=== PATIENT | male | born 1955 | race Caucasian/White ===

== ENCOUNTER 2016-06-03 05:32 | Day surgery (SDC) | payer OTHER ==
--- NOTE | 2016-05-18 08:42 | PAT Medication Instructions ---
Service Date May 18, 2016. Current Home Medication List Acetaminophen (Tylenol Arthritis Ext Rel), 650 MG PO QAM Hydrochlorothiazide (Hydrochlorothiazide), 1 TAB PO QAM Multivitamin (Multivitamin), 1 TAB PO QAM Medication Instructions For Your Scheduled Surgery - Hold the following medications the morning of surgery: Hydrochlorothiazide (Hydrochlorothiazide), 1 TAB PO QAM Multivitamin (Multivitamin), 1 TAB PO QAM - Take the following medications the morning of surgery with a sip of water: Acetaminophen (Tylenol Arthritis Ext Rel), 650 MG PO QAM (if needed) If you have any questions please call us at [phone] or [phone] ( [place]) or [phone]
[2016-05-18 08:56] LABS: BASO % 0.1 %; BASO ABS # 0.01 K/uL (0-0.2); COMPLETE YES; EOS % 0.1 %; HEMATOCRIT 45.9 % (42-52); IG% 0.2 %; LYMPH % 7.8 %; LYMPH ABS # 0.63 K/uL (1.2-3.4); MEAN CELL VOLUME 94.3 fL (80-100); MEAN CORPUSCULAR HEMOGLOBIN 32.6 pg (25-34); MEAN CORPUSCULAR HGB CONC 34.6 g/dl (32-36); MEAN PLATELET VOLUME 11.2 fL (7.4-10.4); MONO % 7.8 %; PLATELET COUNT 176 K/uL (130-400); RED BLOOD COUNT 4.87 M/uL (4.7-6.1); WHITE BLOOD COUNT 8.09 K/uL (4.8-10.8)
[2016-05-18 09:18] LABS: INR 1.1 (0.9-1.1); PROTHROMBIN TIME (PATIENT) 11.4 SECONDS (9.0-12.0)
[2016-05-18 09:23] LABS: BUN/CREATININE RATIO 18.1 (10-20); CALCIUM 8.4 mg/dl (8.5-10.1); CREATININE 0.9 mg/dl (0.60-1.40)
[~2016-06-03] VITALS: Ht 177.8 cm; Wt 94.0 kg
[~2016-06-03 05:32] MED LIST: ACET1TAB84 PO; HYDR25TA5 PO; MULT-506 PO
[2016-06-03] MEDS ORDERED: CEFAZOLIN 2000 MG/60 ML D5W IV SCH (06:00)
[2016-06-03] MEDS ORDERED: HEPARIN SOD 5000 UNIT/0.5 ML CARP SQ SCH (06:00)
[2016-06-03] MEDS ORDERED: LACTATED RINGER'S 1000ML 1,000 ML IV SCH (06:00)
[2016-06-03 06:02] VITALS: BP 159/89; PULSE 87; TEMP 36.5; O2SAT 97; Ht 177.8 cm; Wt 94.0 kg
[2016-06-03] MEDS ORDERED: NEOSTIGMINE METHYLSULFATE 5 MG/5 ML SYR ONE (06:57)
[2016-06-03] MEDS ORDERED: PROPOFOL IV EMULSION 10 MG/ML 20 ML VIAL IV ONE (06:57)
[2016-06-03] MEDS ORDERED: ONDANSETRON INJ 2 MG/ML 2 ML VIAL ONE (06:57)
[2016-06-03] MEDS ORDERED: DEXAMETHASONE SOD INJ 4 MG/ML VIAL ONE (06:57)
[2016-06-03] MEDS ORDERED: GLYCOPYRROLATE INJ 0.2 MG/ML VIAL ONE ×2 (06:57→08:27)
[2016-06-03] MEDS ORDERED: LIDOCAINE HCL 2% 2 ML VIAL (20MG/ML) ONE (06:57)
[2016-06-03] MEDS ORDERED: MIDAZOLAM HCL 1 MG/ML 2ML VIAL ONE (06:58)
[2016-06-03] MEDS ORDERED: FENTANYL CITRATE INJ 50 MCG/1 ML 2 ML VIAL ONE (06:58)
--- NOTE | 2016-06-03 06:59 | History & Physical Bridge Note ---
H&P Re-Evaluation Bridge Note: I have examined the patient, reviewed the History & Physical and in the interval since the performance of the History & Physical I have noted the following changes of clinical significance: No changes noted
[2016-06-03] MEDS ORDERED: EpHEDrine SULFATE INJ 50 MG/ML AMP IV PRN (07:00)
[2016-06-03] MEDS ORDERED: ONDANSETRON INJ 2 MG/ML 2 ML VIAL IV PRN ×2 (07:00→09:45)
[2016-06-03] MEDS ORDERED: ATROPINE SULFATE 0.1 MG/ML 5ML SYR IV PRN (07:00)
[2016-06-03] MEDS ORDERED: HYDR-5688 PO (07:41)
--- NOTE | 2016-06-03 07:42 | Discharge Instructions ---
Discharge Instructions Admission Reason for Admission: Recurrent Left Inguinal Hernia Discharge Discharge Diagnosis / Problem: recurrent left inguinal hernia Discharge Goals Goal(s): Decrease discomfort, Improve function Activity Recommendations Activity Limitations: as noted below Lifting Limitations: no more than 10 pounds Exercise/Sports Limitations: until after follow-up appointment May Resume Sexual Activity: after follow-up appointment Shower/Bathe: tomorrow . Instructions / Follow-Up Instructions / Follow-Up f/u Dr. Lester 1-2 weeks. Current Hospital Diet Patient's current hospital diet: Discharge Diet Recommended Diet: Regular Diet Pending Studies Studies pending at discharge: no Medical Emergencies . Who to Call and When: Medical Emergencies: If at any time you feel your situation is an emergency, please call 911 immediately. . Non-Emergent Contact Non-Emergency issues call your: Primary Care Provider, Surgeon Call Non-Emergent contact if: temperature is above 101, wound has increased drainage, wound has increased redness, wound has increased pain . "Provider Documentation" section prepared by Ronaldo Lester. VTE Core Measure Inpt VTE Proph given/why not?: Unfractionated heparin SQ, SCD's
[2016-06-03] MEDS ORDERED: VASOPRESSIN 20 UNIT/ML VIAL ONE (08:27)
[2016-06-03] MEDS ORDERED: BUPIVACAINE/EPINEPHRINE 0.5% MPF 1:200,000 30 ML VIAL INJ ONE (09:04)
--- NOTE | 2016-06-03 09:30 | [facility] Operative Report ---
Operative Report Operative Date Jun 03, 2016. Pre-Operative Diagnosis Recurrent Left Inguinal Hernia Post-Operative Diagnosis recurrent LIH Procedure(s) Performed laparoscopic LIH repair with mesh Surgeon Dr Lester Findings large recurrent hernia with sigmoid colon incarceration Specimens None Anesthesia GET Complication(s) None Disposition Recovery Room / PACU I attest to the content of the Intraoperative Record and any orders documented therein. Any exceptions are noted below.
[2016-06-03] MEDS ORDERED: SODIUM CHLORIDE 0.9% 1000ML 1,000 ML IV SCH (09:31)
--- NOTE | 2016-06-03 09:34 | History and Physical ---
History & Physical Date Jun 03, 2016. Chief Complaint recurrent LIH History of Present Illness The patient is a 61 year old male with complaints of left groin bulge/discomfort Past Medical/Surgical History Medical Problems: (1) Diverticulosis (2) HTN (hypertension) (3) Hyperlipidemia Additional History Hepatic Disease: No Endocrine Disorder: No Kidney Disease: No Hypertension: No Heart Disease: No Bleeding Tendencies: No Infectious Diseases: No Allergies Coded Allergies: No Known Allergies (Unverified , 06/03/16) Home Medications Scheduled Acetaminophen (Tylenol Arthritis Ext Rel), 650 MG PO QAM Hydrochlorothiazide (Hydrochlorothiazide), 1 TAB PO QAM Multivitamin (Multivitamin), 1 TAB PO QAM Scheduled PRN Hydrocodone/Acetaminophen 5MG/325MG ([place] 5MG/325MG), 1-2 TABLET PO Q4 PRN for Pain Physical Examination Skin: warm/dry Eyes: normal inspection, EOMI ENT: normal ENT inspection Head: normocephalic Neck: supple, no adenopathy Respiratory/Chest: lungs clear Cardiovascular: regular rate, rhythm, no edema Abdomen / GI: + pertinent finding (large recurrent LIH) Extremities: normal inspection Genitourinary - Male: normal male genitalia Diagnosis recurrent LIH Plan of Treatment laparoscopic/possible open LIH repair with mesh
[2016-06-03] MEDS ORDERED: KETOROLAC TROMETHAMINE 30 MG/ML VIAL IV. PRN (09:45)
[2016-06-03] MEDS ORDERED: HYDROCODONE/ACETAMOPHEN 5/325MG TAB PO PRN ×2 (09:45)
[2016-06-03] MEDS ORDERED: MoRPHine SULFATE 4 MG/ML 1 ML CARP\\VIAL IV PRN (09:45)
[2016-06-03] MEDS ORDERED: IBUPROFEN 600 MG TAB PO PRN (09:45)
[2016-06-03] MEDS: FENTANYL CITRATE INJ 50 MCG/1 ML 2 ML VIAL IV PRN ×2 (09:49→09:54)
--- NOTE | 2016-06-03 10:12 | OPERATIVE REPORT ---
DATE OF OPERATION: 06/03/2016 PREOPERATIVE DIAGNOSIS: Recurrent left inguinal hernia. POSTOPERATIVE DIAGNOSIS: Large recurrent left inguinal hernia with sigmoid colon incarceration. PROCEDURE: Laparoscopic repair of recurrent left inguinal hernia with mesh. SURGEON: Dr. Lester. ESTIMATED BLOOD LOSS: 20 mL. COMPLICATIONS: No immediate. ANESTHESIA: General. The patient tolerated the procedure well. OPERATIVE NOTE: After informed consent was obtained, the patient was taken to the operating suite and placed in supine position. After successful intubation, a Pro catheter was placed and the lower abdomen was shaved and sterilely prepped and draped in the usual fashion. The right arm was tucked. We began by making an infraumbilical incision with an 11 blade scalpel and carried down through the soft tissue using electrocautery. Anterior rectus fascia was opened using electrocautery and two #0 Vicryl stay sutures were placed. The peritoneum was elevated with hemostats and incised under direct vision using Metzenbaum scissor. A finger sweep was performed and a 12 mm Staci trocar was placed. The abdomen was insufflated to 20 mmHg with CO2. We inserted the camera. We were able to place 2 right mid abdominal 5 mm trocars as well. Initially at the beginning of the procedure after pneumoperitoneum, the patient had a brief episode of bradycardia. We desufflated the abdomen and waited for this to correct with anesthesia's help. Once his heart rate was back up to normal, we reinsufflated the abdomen, reinserted the camera. There was a very large left inguinal hernia defect with sigmoid colon incarcerated within it. The patient had a large amount of weight loss recently, and the soft tissues were very lax. We did have a lot of CO2 leakage around the trocar sites and into the soft tissue throughout the case making visualization somewhat difficult. Nonetheless, we were able to manually reduce the sigmoid colon back into the abdominal cavity. There was a very large, floppy, chronic hernia sac. We used the Harmonic scalpel to divide this and tease this out of the inguinal canal and back into the abdominal cavity. Once we had completely skeletonize the cord and cord structures, and we everything reduced, we then used a piece of Surgimesh with a silicone barrier to prevent adhesions. I did cut a keyhole in it to wrap around the cord and cord structures. It was a 12 cm circular piece. We inserted this into the abdominal cavity, and I used the keyhole to go around the cord and cord structures. We placed it into place and then used a ProTacker to tack it making sure we could palpate the tacker above the iliopubic tract laterally. I also put one into Patrick's ligament medially. The mesh laid nice and free and without tension. There was adequate hemostasis at the end of the case. No other abnormalities were identified. We did watch the mesh fold into place nicely as we desufflated the abdomen. We then removed all the trocars. The fascia of the camera port was closed using 0 Vicryl in a [id number] fashion. The wounds were all irrigated and closed using 4-0 Monocryl. Marcaine was injected around for postoperative analgesia and skin glue an Op-Sites used for dressings. There was a fair amount of C2 in the scrotum, as well as in the soft tissue at the end of the case. Other than that, no other issues were identified. The patient was awakened, extubated, and transferred to recovery in stable condition. I attest to the content of the Intraoperative Record and any orders documented therein. Any exceptio ns are noted below.
[2016-06-03 10:20] VITALS: BP 127/72; PULSE 68; TEMP 36.4; O2SAT 93
--- NOTE | 2016-06-03 10:38 | Anesthesiology Progress Note ---
Anesthesia Post Op Note Date & Time Jun 03, 2016 at 10:38 Vital Signs Pain Intensity: 3 Vital Signs Past 12 Hours Date Time Temp Pulse Resp B/P Pulse Ox O2 Delivery O2 Flow Rate FiO2 06/03/16 10:10 36.6 79 16 153/92 100 Room Air 06/03/16 10:00 36.6 74 16 135/88 98 Room Air 06/03/16 09:50 69 16 132/86 99 Room Air 06/03/16 09:40 59 16 136/92 100 Mask 10 06/03/16 09:30 52 16 123/73 100 Mask 10 06/03/16 09:21 36.1 68 16 134/85 100 Mask 10 06/03/16 06:02 36.5 87 18 159/89 97 Room Air Notes Mental Status: alert / awake / arousable, participated in evaluation Pt Amnestic to Procedure: Yes Nausea / Vomiting: adequately controlled Pain: adequately controlled Airway Patency, RR, SpO2: stable & adequate BP & HR: stable & adequate Hydration State: stable & adequate Anesthetic Complications: no major complications apparent
[2016-06-03 10:50] VITALS: BP 142/89; PULSE 72; TEMP 36.2; O2SAT 98
[2016-06-03 11:20] VITALS: BP 126/81; PULSE 82; TEMP 36.5; O2SAT 96
== END 2016-06-03 11:25 | disposition home or self-care (01) ==
LOC: C.ACU 05:32
PROVIDERS: ATTEND Surgery
DX: K40.91 Unilateral inguinal hernia, without obstruction or gangrene, recurrent (principal); K56.69 Other intestinal obstruction; K57.90 Diverticulosis of intestine, part unspecified, without perforation or abscess without bleeding; E78.5 Hyperlipidemia, unspecified; I10 Essential (primary) hypertension

== ENCOUNTER → 2017-03-11 | Outpatient (CLI) | payer OTHER ==
[2017-03-11 10:11] LABS: BLOOD UREA NITROGEN 11 mg/dl (7-18); BUN/CREATININE RATIO 13.4 (10-20); CALCIUM 8.7 mg/dl (8.5-10.1); CARBON DIOXIDE 30 mmol/L (21-32); CHLORIDE 105 mmol/L (98-107); CHOLESTEROL 180 mg/dl (0-200); CHOLESTEROL/HDL RATIO 3.3; CREATININE 0.82 mg/dl (0.60-1.40); GLUCOSE 94 mg/dl (70-99); HDL CHOLESTEROL 54 mg/dl; LDL CHOLESTEROL CALCULATED 98 mg/dl; POTASSIUM 3.9 mmol/L (3.5-5.1); SODIUM 140 mmol/L (136-145); TRIGLYCERIDES 142 mg/dl (0-150); VERY LOW DENSITY LIPOPROT CALC 28 mg/dl
== END | disposition home or self-care (01) ==
LOC: C.LAB 06:59
PROVIDERS: ATTEND Internal Medicine
DX: I10 Essential (primary) hypertension (principal)

== ENCOUNTER 2024-10-02 08:37 | Inpatient (IN) ==
[2024-10-02 09:19] LABS: HCO3 VBG 29 mmol/L; Oxygen Saturation VBG < 60.0 %; PCO2 VBG 49 mmHg (38-50); PO2 VBG 30 mmHg; pH VBG 7.38 (7.36-7.41)
--- NOTE | 2024-10-02 09:23 | Emergency Department Note ---
Impression & Plan Symptomatic bradycardia, Lightheadedness, Acute dyspnea, Elevated brain natriuretic peptide (BNP) level ED Provider Note HISTORY OF PRESENT ILLNESS: Patient is a 69-year-old male presenting with shortness of breath and dizziness. Patient reports that 4 days ago he took his morning medications and did not eat right away and had gone and done some chores. He reports that he got very lightheaded and passed out. He states that he woke up and went and had breakfast and thought he would be getting better, but has had persistent dizziness and lightheadedness ever since. He states that while walking he feels very lightheaded like he is going to pass out. He states that he also gets very short of breath with ambulation. He denies any chest pain with this shortness of breath or lightheadedness. He reports he is able to take about 10-15 steps before he has to stop to try to catch his breath. Denies any DVT or PE history. Denies any history of cardiac stents. He is on Eliquis for history of permanent A-fib. He states that he also has noticed that his heart rate has been getting down into the 40s. He states that he was using an at-home pulse ox when he got lightheaded and noticed that his heart rate was in the 40s. He denies any recent fevers or chills. He does report he has been having bilateral muscular neck stiffness. He states that this started 3 to 4 months ago, shortly after initiating his statin. Denies any headache or changes in vision. Denies any abdominal pain, nausea or vomiting. ROS: as above PHYSICAL EXAM: Constitutional: Patient appears in no acute distress. HENT: Head: Normocephalic and atraumatic. Eyes: EOMI, PERRL Mouth/Throat: Mucous membranes moist. Neck: Trachea midline. Neck supple. Full range of motion of the neck without meningismus. Cardiovascular: Bradycardic with irregular rhythm. No murmurs, rubs or gallops. Intact distal pulses. Pulmonary/Chest: No respiratory distress. Breath sounds clear and equal bilaterally. No wheezes or rales. Abdominal: Abdomen soft, no tenderness, rebound or guarding. Musculoskeletal: No edema, tenderness or deformity noted. Skin: Warm and dry. No rash, erythema, pallor or cyanosis Psychiatric: Appropriate mood and affect for situation. Neurological: Alert and keenly responsive. CN II-XII grossly intact, moving all extremities equally and fully. MDM: - Vitals signs showed hypertension and bradycardia. - History obtained via patient. History as above. - Chronic conditions affecting care: HTN; BRETT; permanent Afib; RBBB - Differential diagnoses include, but are not limited to: Dysrhythmia; electrolyte abnormality; CHF; pneumonia; ACS; viral syndrome - Order placed for continuous cardiac monitoring. At this time, monitor showed rate of 41 bpm with irregular rhythm, per my interpretation. - External medical records reviewed. Cardiology office visit note dated 03/29/2024 was reviewed. Patient follows in their clinic for his permanent atrial fibrillation. - EKG image interpreted by myself showed atrial fibrillation. Rate 52 bpm. QT 480. No acute ischemic changes. - While on telemetry in the emergency department, the patient is noted to have significant bradycardic episodes, with his heart rate going down to 30. A repeat EKG obtained at 949 interpreted by myself showed atrial fibrillation. Rate 50 bpm. QT 492. Patient is very symptomatic to his episodes of bradycardia and states that he feels woozy and lightheaded despite laying in bed. - Laboratory workup interpreted by myself showed leukocytosis (WBC 12.45) with neutrophil predominance; normal PT/INR; elevated BNP (261); normal troponin; stable electrolytes - Viral respiratory panel negative - VBG normal - CXR image reviewed by myself showed pulmonary vascular congestion, per my interpretation. Radiology notes mild CHF and atelectasis versus early pneumonia in the lung bases. - CT cervical spine wo contrast negative for acute pathology - CT PE negative for PE. Noted to have cardiomegaly and moderate-sized hiatal hernia. - Discussed patient's case with [facility] hash slinger on-call, Dr. Gatica, at 1125. He recommended holding the patient's AV mason drugs and reassess about potential need for pacemaker. - However, patient continues to have episodes of bradycardia down to the low 30s and he is symptomatic. Will admit for further evaluation, including echocardiogram and cardiology consultation. - Discussion was had with major case detective about patient's case and need for admission - Hospitalist consulted for admission - Patient admitted to [facility] hospitalist service for further evaluation and management. ASSESSMENT AND PLAN: Diagnosis: symptomatic bradycardia; lightheadedness; acute dyspnea; elevated BNP Plan: admit Past Med/Surg History Problem List (Updated 10/02/24 @ 13:24 by Rhina Segura MD) Elevated brain natriuretic peptide (BNP) level (Acute) Acute dyspnea (Acute) Lightheadedness (Acute) Symptomatic bradycardia (Acute) BPH (benign prostatic hyperplasia) At increased risk for cardiovascular disease Gonsales's esophagus with low grade dysplasia EGD 07/21/2023 Erectile dysfunction Normal left ventricular systolic function and wall motion Abnormal electrocardiogram Right bundle branch block BRETT (obstructive sleep apnea) Vitamin D insufficiency Class 2 obesity Metabolic syndrome Hyperglycemia Low back pain Chronic sinusitis (Acute) Hyperlipidemia (Chronic) HTN (hypertension) (Chronic) Chronic anticoagulation eliquis daily Afib on eliquis--follows with Dr. Perez Osteoarthritis Barretts esophagus Medical History Right ear impacted cerumen Anemia Morbid obesity due to excess calories Dietary counseling and surveillance HTN (hypertension) History of sleep apnea Iron deficiency anemia Surgical History History of esophagogastroduodenoscopy (EGD) History of tonsillectomy History of hernia repair History of colonoscopy Family History Grandmother (Maternal) Diabetes Other No family history of adverse response to anesthesia Denies family history of Colon cancer Ovarian cancer Prostate cancer Myocardial infarction Breast cancer Lung cancer Colorectal cancer Stroke Social History Smoking Status: Never smoker Tobacco Type: Cigars Age Started Using Tobacco: 20; Second Hand Exposure: No; Do You Dip or Chew Tobacco: No; Hx Alcohol Use: Yes Alcohol type: beer and hard liquor Hx Substance Use: No Preferred Language: Uzbek Communication Ability: Effective Visual Impairment: Limited Hearing Ability: Normal Mold Holder Required: No Beliefs That Will Affect Care: None marital status: / Current Living Situation: Alone current occupational status: retired 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 How many Children do You have: 2 Feels Safe at Home: Yes Childhood Exposure to Second-Hand Smoke: No caffeine: Yes Dental Care, Regularly: Yes Physical Activity Frequency: 1-2 Times per Week Seatbelt Use: always Sunscreen Use: Yes Assistive Devices: Glasses Allergies Allergies Allergy/AdvReac Type Severity Reaction Status Date / Time No Known Allergies Allergy Verified 03/29/24 08:20 Home Meds Home Medications Medication Instructions Recorded Confirmed turmeric (bulk) 95 % powder 1 % miscellaneous QAM 03/23/19 10/02/24 (Curcumin) acetaminophen 650 mg 650 mg PO QAM 10/11/19 10/02/24 tablet,extended release ascorbate calcium (vitamin C) 500 1 g PO QAM 05/12/21 10/02/24 mg tablet cholecalciferol (vitamin D3) 50 50 mcg PO QAM 07/08/23 10/02/24 mcg (2,000 unit) capsule ferrous sulfate 325 mg (65 mg 325 mg PO WK 09/21/23 10/02/24 iron) tablet multivitamin 1 tab PO DAILY 10/02/24 10/02/24 Previous Rx's Medication Instructions Recorded sildenafil 50 mg tablet (Viagra) 50 mg PO DAILY PRN sexual activity 12/01/23 #20 tabs pantoprazole 40 mg tablet,delayed 40 mg PO BID #180 tabs 01/25/24 release losartan 100 mg tablet 100 mg PO QAM #90 tabs 03/02/24 apixaban 5 mg tablet (Eliquis) 5 mg PO BID #60 tabs 08/06/24 hydrochlorothiazide 25 mg tablet 25 mg PO QAM #90 tabs 08/17/24 diltiazem HCl 180 mg 180 mg PO QAM #100 caps 08/21/24 capsule,extended release 24 hr rosuvastatin 5 mg tablet 5 mg PO DAILY #30 tabs 09/09/24 Results & Data (ED) Vital Signs Vital Signs - 24 hr 10/02/24 08:38 10/02/24 08:54 10/02/24 08:55 Temperature 36.6 C Temperature Source Temporal Artery Scan Pulse Rate 52 L Pulse Rate [Apical] 54 L Pulse Rate from SpO2 Sensor Pulse Rhythm [Apical] Pulse Strength [Apical] Respiratory Rate 18 13 Respiratory Effort / Characteristics Respiratory Depth Respiratory Pattern Blood Pressure 152/65 H Blood Pressure [Right Arm] 182/90 H Blood Pressure Mean 94 Blood Pressure Mean [Right Arm] 120 Blood Pressure Position [Right Arm] Pulse Oximetry 99 97 Oxygen Delivery Method Room Air Room Air Sepsis Recent Fever Within 48 Hours No Sepsis New/Unexplained Change in Mental Status N/A Sepsis Action Taken by Nursing No Action Required 10/02/24 09:00 10/02/24 09:02 10/02/24 09:06 Temperature Temperature Source Pulse Rate 52 L 52 L Pulse Rate [Apical] Pulse Rate from SpO2 Sensor Pulse Rhythm [Apical] Pulse Strength [Apical] Respiratory Rate 19 Respiratory Effort / Characteristics Respiratory Depth Respiratory Pattern Blood Pressure 147/71 H Blood Pressure [Right Arm] Blood Pressure Mean 96 Blood Pressure Mean [Right Arm] Blood Pressure Position [Right Arm] Pulse Oximetry Oxygen Delivery Method Sepsis Recent Fever Within 48 Hours Sepsis New/Unexplained Change in Mental Status Sepsis Action Taken by Nursing 10/02/24 09:19 10/02/24 09:30 10/02/24 09:30 Temperature Temperature Source Pulse Rate 51 L Pulse Rate [Apical] Pulse Rate from SpO2 Sensor Pulse Rhythm [Apical] Pulse Strength [Apical] Respiratory Rate 21 Respiratory Effort / Characteristics Respiratory Depth Respiratory Pattern Blood Pressure 144/80 H Blood Pressure [Right Arm] Blood Pressure Mean 117 Blood Pressure Mean [Right Arm] Blood Pressure Position [Right Arm] Pulse Oximetry Oxygen Delivery Method Room Air Sepsis Recent Fever Within 48 Hours Sepsis New/Unexplained Change in Mental Status Sepsis Action Taken by Nursing 10/02/24 09:57 10/02/24 10:00 10/02/24 10:09 Temperature Temperature Source Pulse Rate 49 L 48 L Pulse Rate [Apical] Pulse Rate from SpO2 Sensor 49 L 48 L Pulse Rhythm [Apical] Pulse Strength [Apical] Respiratory Rate 19 18 Respiratory Effort / Characteristics Respiratory Depth Respiratory Pattern Blood Pressure 147/78 H Blood Pressure [Right Arm] Blood Pressure Mean 95 Blood Pressure Mean [Right Arm] Blood Pressure Position [Right Arm] Pulse Oximetry 97 96 Oxygen Delivery Method Room Air Room Air Sepsis Recent Fever Within 48 Hours Sepsis New/Unexplained Change in Mental Status Sepsis Action Taken by Nursing 10/02/24 11:20 10/02/24 12:58 10/02/24 13:24 Temperature Temperature Source Pulse Rate 38 L Pulse Rate [Apical] 37 L 35 L Pulse Rate from SpO2 Sensor Pulse Rhythm [Apical] Regular Regular Pulse Strength [Apical] Normal Normal Respiratory Rate 20 22 Respiratory Effort / Characteristics Non-Labored Spontaneous Non-Labored Spontaneous Respiratory Depth Normal Normal Respiratory Pattern Regular Regular Blood Pressure Blood Pressure [Right Arm] 136/69 147/72 H Blood Pressure Mean Blood Pressure Mean [Right Arm] 91 97 Blood Pressure Position [Right Arm] Lying Lying Pulse Oximetry 98 96 Oxygen Delivery Method Room Air Room Air Sepsis Recent Fever Within 48 Hours Sepsis New/Unexplained Change in Mental Status Sepsis Action Taken by Nursing Laboratory Data 10/02/24 09:00 10/02/24 09:00 Lab Results 10/02/24 10/02/24 10/02/24 Range/Units 09:00 09:15 10:35 WBC 12.45 H (4.8-10.8) K/ul RBC 4.52 L (4.70-6.10) M/uL Hgb 13.4 L (14.0-18.0) g/dl Hct 41.5 L (42.0-52.0) % MCV 91.8 (80.0-100.0) fL MCH 29.6 (25.0-34.0) pg MCHC 32.3 (32.0-36.0) g/dL RDW Std Deviation 50.4 H (36.4-46.3) fL RDW Coeff of Sean 14.9 H (11.5-14.5) % Plt Count 266 (130-400) K/uL MPV 11.6 (9.4-12.4) fL Immature Gran % (Auto) 0.3 % Neut % (Auto) 73.4 % Lymph % (Auto) 15.3 % Cecil % (Auto) 10.3 % Eos % (Auto) 0.3 % Baso % (Auto) 0.4 % Neut # (Auto) 9.14 H (1.40-6.50) K/uL Lymph # (Auto) 1.90 (1.20-3.40) K/uL Cecil # (Auto) 1.28 H (0.11-0.59) K/uL Eos # (Auto) 0.04 (0.00-0.50) K/uL Baso # (Auto) 0.05 (0.00-0.20) K/uL Immature Gran # (Auto) 0.04 (0.01-0.20) K/uL PT 11.0 (9.0-12.0) Seconds INR 1.0 (0.9-1.1) VBG pH 7.38 (7.36-7.41) VBG pCO2 49 (38-50) mmHg VBG pO2 30 mmHg VBG HCO3 29 mmol/L VBG O2 Saturation < 60.0 % VBG Base Excess 3.0 mEq/L Sodium 139 (136-145) mmol/L Potassium 4.0 (3.5-5.1) mmol/L Chloride 103 (98-107) mmol/L Carbon Dioxide 30 (21-32) mmol/L Anion Gap 6 (3-11) BUN 19 (6-23) mg/dl Creatinine 1.08 (0.6-1.4) mg/dl Est Cr Clr Drug Dosing Not Reportable eGFR 73.82 BUN/Creatinine Ratio 17.6 (10-20) Glucose 134 H (70-99(Fasting)) mg/dl Calcium 9.4 (8.6-10.3) mg/dl Magnesium 2.2 (1.7-2.4) mg/dl Total Bilirubin 0.8 (0.2-1.0) mg/dl AST 17 (13-39) U/L ALT 19 (7-52) U/L Alkaline Phosphatase 77 (34-104) U/L Troponin I High Sens 6.8 (0-20) pg/ml B-Natriuretic Peptide 261 H (0-100) pg/ml Total Protein 7.6 (6.0-8.3) gm/dl Albumin 4.3 (3.4-5.0) gm/dl Globulin 3.3 (2.5-4.0) gm/dl Albumin/Globulin Ratio 1.3 (0.9-2) Urine Color Yellow Urine Appearance Clear (Clear) Urine pH 8.0 H (4.5-7.5) Ur Specific [place] 1.021 (1.000-1.030) Urine Protein 1+ H (Negative) Urine Glucose (UA) Negative (Negative) Urine Ketones Trace H (Negative) Urine Blood Negative (Negative) Urine Nitrite Negative (Negative) Urine Bilirubin Negative (Negative) Urine Urobilinogen Negative (Negative) Ur Leukocyte Esterase Negative (Negative) Urine WBC (Auto) 0-5 (0-5) /hpf Urine RBC (Auto) 0-2 (0-2) /hpf U Hyaline Cast (Auto) 0-2 (0-2) /lpf U Epithel Cells (Auto) 0-2 (0-2) /hpf Urine Bacteria (Auto) None Seen (None Seen) Urine Comment Adenovirus (PCR) Not Detected (NotDetected) B. pertussis DNA (PCR) Not Detected (NotDetected) B.parapertussis DNA PCR Not Detected (NotDetected) C. pneumoniae DNA (PCR) Not Detected (NotDetected) Coronavirus OC43 (PCR) Not Detected (NotDetected) Coronavirus HKU1 (PCR) Not Detected (NotDetected) Coronavirus 229E (PCR) Not Detected (NotDetected) SARS-CoV-2 (PCR) Not Detected (NotDetected) Coronavirus NL63 (PCR) Not Detected (NotDetected) Human Metapneumovir PCR Not Detected (NotDetected) Influenza Type A (PCR) Not Detected (NotDetected) Influenza Type B (PCR) Not Detected (NotDetected) M. pneumoniae (PCR) Not Detected (NotDetected) Parainfluenza 1 (PCR) Not Detected (NotDetected) Parainfluenza 2 (PCR) Not Detected (NotDetected) Parainfluenza 3 (PCR) Not Detected (NotDetected) Parainfluenza 4 (PCR) Not Detected (NotDetected) RSV (PCR) Not Detected (NotDetected) Entero/Rhino (PCR) Not Detected (NotDetected) Administered Medications Discontinued Medications Ioversol (Optiray 320 125ml) 119 ml IV ONCE ONE Stop: 10/02/24 10:56 Last Admin: 10/02/24 10:55 Dose: 119 ml Documented By: [facility] Imaging Data Radiologist's Impression: Chest X-Ray 10/02/24 08:57 XR chest 1V portable CLINICAL HISTORY: Dyspnea COMPARISON STUDY: 08/11/2015 FINDINGS: There is moderate cardiomegaly with mild pulmonary vascular congestion. There is density at the low central chest which could be due to the cardiomegaly or hiatal hernia. Inspiration is shallow. There is mild stranding opacity at the lung bases. No lobar consolidation, pleural effusion, or pneumothorax. IMPRESSION: 1. Mild CHF. 2. Atelectasis versus early pneumonia in the lung bases. ACT 112: Negative or not required by law. Electronically signed by: Simón Muro M.D. 10/02/2024 9:[address] 10/02/24 09:32 CT SCAN OF THE CERVICAL SPINE CLINICAL HISTORY: Neck pain. COMPARISON STUDY: None. TECHNIQUE: CT scan of the cervical spine is performed from the skull base to the upper thoracic spine. Images are reviewed in the axial, sagittal, and coronal planes. IV contrast was not administered for this examination. A dose lowering technique was utilized adhering to the principles of ALARA. FINDINGS: Alignment of the cervical spine is anatomic. Vertebral body heights are maintained. There are no cervical spine fractures. No osseous lesions are identified. There is moderate multilevel facet arthrosis and degenerative disc disease within the cervical spine. Disc space narrowing is most pronounced at the C5-C6 and C6-C7 levels. There is associated osteophytosis. The central canal and neural foramen are suboptimally assessed given CT technique. However, there is no evidence for severe central canal stenosis on this exam. Prevertebral soft tissues are unremarkable. Chest CT will be reported separately. IMPRESSION: 1. No acute cervical spine fracture or subluxation. 2. Moderate multilevel degenerative disc disease and facet arthrosis within the cervical spine. Suboptimal evaluation of the central canal and neural foramen given CT technique but no evidence for severe central canal stenosis on this study. ACT 112: Negative or not required by law. Electronically signed by: Carlos Enrique Siddiqui M.D. 10/02/2024 11:11 AM Chest CTA 10/02/24 09:32 CT angio chest PE protocol CT DOSE: 1515.74 mGy.cm HISTORY: 69 years-old Male with PE. Acute shortness of breath with chest and neck pain TECHNIQUE: Multiple CTA images of the chest were obtained after the intravenous administration of 119 ml Optiray. Coronal and sagittal MIPS were obtained from the axial data set and were submitted for review. All measurements were obtained according to NASCET criteria. A dose lowering technique was utilized adhering to the principles of ALARA. COMPARISON: Chest x-ray of same day FINDINGS: CTA: Moderate cardiomegaly. No pericardial effusion. There is minimal coronary artery calcifications. Fusiform dilation of the ascending thoracic aorta, 4.3 x 4.2 cm. No dissection. No pulmonary emboli are seen. CT CHEST: Unremarkable thyroid. No lymphadenopathy. No pneumothorax, pleural effusion or overt pulmonary edema. Linear subsegmental atelectasis versus scarring. No suspicious pulmonary nodules or masses. The central airways appear patent. Moderate sized hiatal hernia. Mid to distal esophageal wall thickening. Unremarkable soft tissues.r indeterminate hypodense 1.8 cm splenic lesion. No acute fracture. IMPRESSION: 1. No pulmonary emboli. 2. Cardiomegaly with mild fusiform dilation of the ascending thoracic aorta, 4.3 x 4.2 cm. 3. No pleural effusion or airspace consolidation typical for pneumonia. 4. Moderate sized hiatal hernia with mild mid to distal esophageal wall thickening which may represent a nonspecific esophagitis. ACT 112: Negative or not required by law. The above report was generated using voice recognition software. It may contain grammatical, syntax or spelling errors. Electronically signed by: Toni Wilkerson M.D. 10/02/2024 11:25 AM Discharge Plan Visit Data Chief Complaint: Cardiac Assessment Stated Complaint: LIGHTHEADED ED Provider: Rhina Segura Discharge Problem: Symptomatic bradycardia, Lightheadedness, Acute dyspnea, Elevated brain natriuretic peptide (BNP) level Condition: Fair Forms Stand Alone Forms: [employer] Prescriptions Prescriptions: No Action sildenafil [Viagra] 50 mg tablet 50 mg PO DAILY PRN (Reason: sexual activity) Qty: 20 1RF Rx Instructions: administer 30 minutes to 4 hours before activity pantoprazole 40 mg tablet,delayed release (DR/EC) 40 mg PO BID Qty: 180 3RF losartan 100 mg tablet 100 mg PO QAM Qty: 90 3RF Eliquis 5 mg tablet 5 mg PO BID Qty: 60 5RF hydrochlorothiazide 25 mg tablet 25 mg PO QAM Qty: 90 1RF diltiazem HCl 180 mg capsule,extended release 24hr 180 mg PO QAM Qty: 100 3RF rosuvastatin 5 mg tablet 5 mg PO DAILY Qty: 30 5RF Curcumin 95 % powder 1 % MS QAM acetaminophen 650 mg tablet extended release 650 mg PO QAM ferrous sulfate 325 mg (65 mg iron) tablet 325 mg PO WK Rx Instructions: MONDAYS ascorbate calcium (vitamin C) 500 mg tablet 1 g PO QAM cholecalciferol (vitamin D3) 50 mcg (2,000 unit) capsule 50 mcg PO QAM multivitamin Tablet 1 tab PO DAILY Referrals Referrals: Masood Zapien MD [Primary Care Provider] -
[2024-10-02 09:27] LABS: Basophils # (auto) 0.05 K/uL (0.00-0.20); Basophils % (auto) 0.4 %; Eosinophils # (auto) 0.04 K/uL (0.00-0.50); Eosinophils % (auto) 0.3 %; Hematocrit (blood only) 41.5 % (42.0-52.0); Hemoglobin 13.4 g/dl (14.0-18.0); Immature Granulocytes # (auto) 0.04 K/uL (0.01-0.20); Immature Granulocytes % (auto) 0.3 %; Lymphocytes % (auto) 15.3 %; Mean Corpuscular Hemoglobin 29.6 pg (25.0-34.0); Mean Corpuscular Hgb Conc 32.3 g/dL (32.0-36.0); Mean Corpuscular Volume 91.8 fL (80.0-100.0); Mean Platelet Volume 11.6 fL (9.4-12.4); Monocytes # (auto) 1.28 K/uL (0.11-0.59); Monocytes % (auto) 10.3 %; Neutrophils # (auto) 9.14 K/uL (1.40-6.50); Neutrophils % (auto) 73.4 %; Platelet Count 266 K/uL (130-400); RDW Coefficient of Variation 14.9 % (11.5-14.5); RDW Standard Deviation 50.4 fL (36.4-46.3); Red Blood Count 4.52 M/uL (4.70-6.10); White Blood Count 12.45 K/ul (4.8-10.8)
--- NOTE | 2024-10-02 09:30 | XRay Report ---
XR chest 1V portable CLINICAL HISTORY: Dyspnea COMPARISON STUDY: 08/11/2015 FINDINGS: There is moderate cardiomegaly with mild pulmonary vascular congestion. There is density at the low central chest which could be due to the cardiomegaly or hiatal hernia. Inspiration is shallo w. There is mild stranding opacity at the lung bases. No lobar consolidation, pleural effusion, or pn eumothorax. IMPRESSION: 1. Mild CHF. 2. Atelectasis versus early pneumonia in the lung bases. ACT 112: Negative or not required by law. Electronically signed by: Simón Muro M.D. 10/02/2024 9:28 AM
[2024-10-02 09:48] LABS: Alanine Aminotransferase 19 U/L (7-52); Albumin Globulin Ratio 1.3 (0.9-2); Alkaline Phosphatase 77 U/L (34-104); Anion Gap 6 (3-11); Aspartate Aminotransferase 17 U/L (13-39); BUN Creatinine Ratio 17.6 (10-20); Bilirubin,Total 0.8 mg/dl (0.2-1.0); Blood Urea Nitrogen 19 mg/dl (6-23); Calcium 9.4 mg/dl (8.6-10.3); Carbon Dioxide 30 mmol/L (21-32); Chloride 103 mmol/L (98-107); Globulin 3.3 gm/dl (2.5-4.0); Glucose 134 mg/dl (70-99(Fasting)); Magnesium 2.2 mg/dl (1.7-2.4); Sodium 139 mmol/L (136-145); Total Protein 7.6 gm/dl (6.0-8.3)
[2024-10-02 09:54] LABS: Troponin I High Sensitivity 6.8 pg/ml (0-20)
[2024-10-02 10:36] LABS: Adenovirus PCR Not Detected (NotDetected); Bordetella parapertussis PCR Not Detected (NotDetected); Bordetella pertussis PCR Not Detected (NotDetected); Chlamydia pneumoniae PCR Not Detected (NotDetected); Coronavirus 229E PCR Not Detected (NotDetected); Coronavirus CoV-2 (COVID19)PCR Not Detected (NotDetected); Coronavirus HKU1 PCR Not Detected (NotDetected); Coronavirus NL63 PCR Not Detected (NotDetected); Coronavirus OC43PCR Not Detected (NotDetected); Human Metapneumovirus PCR Not Detected (NotDetected); Influenza A PCR Not Detected (NotDetected); Influenza B PCR Not Detected (NotDetected); Mycoplasma pneumoniae PCR Not Detected (NotDetected); Parainfluenza Virus 1 PCR Not Detected (NotDetected); Parainfluenza Virus 2 PCR Not Detected (NotDetected); Parainfluenza Virus 3 PCR Not Detected (NotDetected); Parainfluenza Virus 4 PCR Not Detected (NotDetected); Respiratory Syncytial VirusPCR Not Detected (NotDetected); Rhinovirus/Enterovirus PCR Not Detected (NotDetected)
[2024-10-02 10:49] LABS: Appearance Urine Clear (Clear); Bacteria Urine Automated None Seen (None Seen); Bilirubin Urine Negative (Negative); Blood Urine Negative (Negative); Cast Urine Automated 0-2 /lpf (0-2); Color Urine Yellow; Epithelial Cell Urine Auto 0-2 /hpf (0-2); Glucose Urine UA Negative (Negative); Ketones Urine Trace (Negative); Leukocyte Esterase Urine Negative (Negative); Nitrite Urine Negative (Negative); Protein Urine 1+ (Negative); RBC Urine Automated 0-2 /hpf (0-2); Specific Gravity Urine 1.021 (1.000-1.030); Urobilinogen Urine Negative (Negative); WBC Urine Automated 0-5 /hpf (0-5)
[2024-10-02] MEDS: OPTIRAY 320 125ml IV ONE (10:55)
--- NOTE | 2024-10-02 11:12 | CT Scan Report ---
CT SCAN OF THE CERVICAL SPINE CLINICAL HISTORY: Neck pain. COMPARISON STUDY: None. TECHNIQUE: CT scan of the cervical spine is performed from the skull base to the upper thoracic spine . Images are reviewed in the axial, sagittal, and coronal planes. IV contrast was not administered fo r this examination. A dose lowering technique was utilized adhering to the principles of ALARA. FINDINGS: Alignment of the cervical spine is anatomic. Vertebral body heights are maintained. There a re no cervical spine fractures. No osseous lesions are identified. There is moderate multilevel facet arthrosis and degenerative disc disease within the cervical spine. Disc space narrowing is most pron ounced at the C5-C6 and C6-C7 levels. There is associated osteophytosis. The central canal and neural foramen are suboptimally assessed given CT technique. However, there is no evidence for severe centr al canal stenosis on this exam. Prevertebral soft tissues are unremarkable. Chest CT will be reported separately. IMPRESSION: 1. No acute cervical spine fracture or subluxation. 2. Moderate multilevel degenerative disc disease and facet arthrosis within the cervical spine. Subop timal evaluation of the central canal and neural foramen given CT technique but no evidence for sever e central canal stenosis on this study. ACT 112: Negative or not required by law. Electronically signed by: Carlos Enrique Siddiqui M.D. 10/02/2024 11:11 AM
--- NOTE | 2024-10-02 11:27 | CT Scan Report ---
CT angio chest PE protocol CT DOSE: 1515.74 mGy.cm HISTORY: 69 years-old Male with PE. Acute shortness of breath with chest and neck pain TECHNIQUE: Multiple CTA images of the chest were obtained after the intravenous administration of 119 ml Optiray. Coronal and sagittal MIPS were obtained from the axial data set and were submitted for review. All measurements were obtained according to NASCET criteria. A dose lowering technique was u tilized adhering to the principles of ALARA. COMPARISON: Chest x-ray of same day FINDINGS: CTA: Moderate cardiomegaly. No pericardial effusion. There is minimal coronary artery calcifications. Fusi form dilation of the ascending thoracic aorta, 4.3 x 4.2 cm. No dissection. No pulmonary emboli are s een. CT CHEST: Unremarkable thyroid. No lymphadenopathy. No pneumothorax, pleural effusion or overt pulmonary edema. Linear subsegmental atelectasis versus scarring. No suspicious pulmonary nodules or masses. The cent ral airways appear patent. Moderate sized hiatal hernia. Mid to distal esophageal wall thickening. Un remarkable soft tissues.r indeterminate hypodense 1.8 cm splenic lesion. No acute fracture. IMPRESSION: 1. No pulmonary emboli. 2. Cardiomegaly with mild fusiform dilation of the ascending thoracic aorta, 4.3 x 4.2 cm. 3. No pleural effusion or airspace consolidation typical for pneumonia. 4. Moderate sized hiatal hernia with mild mid to distal esophageal wall thickening which may represen t a nonspecific esophagitis. ACT 112: Negative or not required by law. The above report was generated using voice recognition software. It may contain grammatical, syntax o r spelling errors. Electronically signed by: Toni Wilkerson M.D. 10/02/2024 11:25 AM
--- OUTSIDE RECORDS SUMMARY | 2024-10-02 12:30 | External Medical Summary | Continuity of Care Document ---
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) - Diaphragmatic hernia without obstruction or gangrene(Final) - Hyperlipidemia, unspecified(Final) - Obstructive sleep apnea (adult) (pediatric)(Final) - Essential (primary) hypertension(Final) - Unspecified atrial fibrillation(Final) - Gastro-esophageal reflux disease without esophagitis(Final) - Obesity, unspecified(Final) - Body mass index [BMI] 38.0-38.9, adult(Final) - 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(Final) - Other bed bug exterminator (current) drug therapy(Final) - Discharge Disposition: Home or Self Care Attending Physician: MD Villasenor Jennifer L Referring Physician: MD Villasenor Jennifer L Encounter Type: Same Day Surgery Allergies, Adverse Reactions, Alerts No Known Allergies Medications acetaminophen Start: 12/12/23 9:20:00 AM EDT Start Date: 12/12/23 Status: Ordered Repeat number: 1 dilTIAZem Start: 12/12/23 9:15:00 AM EDT Start Date: 12/12/23 Status: Ordered Repeat number: 1 Eliquis 5 mg oral tablet Start: 12/12/23 9:13:00 AM EDT, 1 tab, PO, bid Start Date: 12/12/23 Status: Ordered Repeat number: 1 hydroCHLOROthiazide 12.5 mg oral capsule Start: 02/27/24 10:56:00 AM EDT, 1 cap, PO, Daily Start Date: 02/27/24 Status: Ordered Repeat number: 1 iron sulfate Start: 12/12/23 9:19:00 AM EDT Start Date: 12/12/23 Status: Ordered Repeat number: 1 losartan Start: 12/12/23 9:13:00 AM EDT Start Date: 12/12/23 Status: Ordered Repeat number: 1 Magic (Lidocaine/Maalox/diphenhydramine) Mouthwash (CMPD) Start: 07/09/24 2:59:00 PM EST, 5 mL, swish + swallow, q6h, Disp# 90 mL, [facility] formulation includes equal amounts of generic Maalox Advanced, 2% lidocaine and diphenhydrAMINE, PRN: pain, Pharmacy: [facility] Start Date: 07/09/24 Status: Ordered Quantity: 90.0 Unit: mL Repeat number: 1 Multi Vitamin+ Start: 12/12/23 9:16:00 AM EDT Start Date: 12/12/23 Status: Ordered Repeat number: 1 pantoprazole Start: 12/12/23 9:15:00 AM EDT Start Date: 12/12/23 Status: Ordered Repeat number: 1 rosuvastatin Start: 06/21/24 1:28:00 PM EST Start Date: 06/21/24 Status: Ordered Repeat number: 1 sucralfate 1 g/10 mL oral suspension Start: 07/09/24 3:00:00 PM EST, 10 mL, PO, qid, Disp# 560 mL, Refills: 0, Pharmacy: [facility] Start Date: 07/09/24 Stop Date: 07/23/24 Status: Ordered Quantity: 560.0 Unit: mL Repeat number: 1 turmeric Start: 12/12/23 9:16:00 AM EDT Start Date: 12/12/23 Status: Ordered Repeat number: 1 Vital-D Start: 12/12/23 9:16:00 AM EDT Start Date: 12/12/23 Status: Ordered Repeat number: 1 Vitamin C Start: 12/12/23 9:17:00 AM EDT Start Date: 12/12/23 Status: Ordered Repeat number: 1 Problem List Diagnosis Diagnosis Type Effective Dates Health Status Clini teresita Service Informant Pre-op exam Discharge Diagnosis 07/09/24 Non-Specified Vital Signs Most recent to oldest [Reference Range]: 1 2 3 Patient Weight 122.7 kg (07/09/24 12:24 PM) Temperature [36.5-37.9 DegC] 36.3 DegC *LOW* (07/09/24 3:07 PM) 36.3 DegC *LOW* (07/09/24 2:50 PM) 36.4 DegC *LOW* (07/09/24 12:24 PM) Heart Rate 83 bpm (07/09/24 3:07 PM) 83 bpm (07/09/24 2:50 PM) 93 bpm (07/09/24 12:24 PM) Respiratory Rate 20 br/min (07/09/24 3:07 PM) 20 br/min (07/09/24 2:50 PM) 16 br/min (07/09/24 12:24 PM) Blood Pressure 122/90mmHg (07/09/24 3:07 PM) 122/90mmHg (07/09/24 2:50 PM) 141/100mmHg (07/09/24 12:24 PM) Cuff Pulse Pressure 41 mmHg (07/09/24 12:24 PM) Social History Social History Type Response Sex Male Sex Representation Male (finding) Endoscopy study * MD Jacklyn, Shruthi Navarro: PERFORM, VERIFY Event Display: Endoscopy Authored Date: Please click on link to see image. History and physical note * Contributor_system, [id number]: VERIFY, PERFORM Event Display: H&P Authored Date: Please click on link to see image. * DIO Cardoza Nicholas M: MODIFY MD Nolan, Celestino S: MODIFY, PERFORM MD Nolan, Celestino S: PERFORM, SIGN MD Nolan, Celestino S: SIGN, VERIFY MD Nolan, Celestino S: VERIFY Event Display: Anes H&P Authored Date: [id number] Patient: ELENO LING Age: 69 years Sex: Male : 1955 Associated Diagnoses: None Author: MD Nolan, Celestino Varner Preoperative Information Pre-Operative Diagnosis: Reeves's esophagus . Anesthiesia Preop Info: Procedure: ESOPHAGOGASTRODUODENOSCOPY Date: 07/09/24 13:00 Surgeons: MD Villasenor Jennifer L Diagnosis: reeves's RFA . Reference Report Created By: 07/09/2024 07:28:00, DIO Cardoza Nicholas M, By Chart review. History of Present Illness 69 y/o male with history Afib on eliquis, last took . Obesity BMI 38.8, Reeves's esophagus, here for above. Medical History Cardiovascular: HLD. Hypertension: ARB, HCTZ. Dysrhythmia: Afib, Anticoagulant. Medical Devices: Medical Devices: none . Renal: Noncontributory. Pulmonary: Obstructive sleep apnea: no CPAP. Hematologic: Noncontributory. Neurologic: Noncontributory. Gastrointestinal: GERD. Anesthesia History: Patient's history: Negative. Family's history: Negative. Pediatric: Noncontributory. Autoimmune: Noncontributory. Psychiatric: Noncontributory. Oncology: Noncontributory. Health Status Allergies: Allergic Reactions (Selected) NKA. Medications: Medication List (Selected) Prescriptions Prescribed Magic (Lidocaine/Maalox/diphenhydramine) Mouthwash (CMPD): 5 mL, swish + swallow, q6h, [facility] formulation includes equal amounts of generic Maalox Advanced, 2% lidocaine and diphenhydrAMINE, PRN: pain, 90 mL sucralfate 1 g/10 mL oral suspension: 10 mL, PO, qid, for 14 day, 560 mL, 0 Refill(s) Documented Medications Documented Eliquis 5 mg oral tablet: 1 tab, PO, bid Multi Vitamin+: Vital-D: Vitamin C: acetaminophen: dilTIAZem: hydroCHLOROthiazide 12.5 mg oral capsule: 1 cap, PO, Daily iron sulfate: losartan: pantoprazole: rosuvastatin: turmeric: . Problem List: No problem items selected or recorded.. Histories Procedure History: No active procedure history items have been selected or recorded.. 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 Other Tobacco Use: Alcohol: Recreational Drugs: . Physical Examination VS/Measurements: Vital Signs 07/09/2024 12:24 EST MEWS Score 0 07/09/2024 12:24 EST Temperature 36.4 DegC LOW Heart Rate 93 bpm Respiratory Rate 16 br/min Systolic Blood Pressure 141 mmHg Diastolic Blood Pressure 100 mmHg Cuff Pulse Pressure 41 mmHg Oxygen Therapy Room Air SpO2 95 % . General: Alert and oriented, No acute distress. Airway: Mallampati classification: III (soft palate, base of uvula visible). Distance: Interincisive, Hyomental distance ( 30-40 millimeters ). Mouth: Within normal limits, Teeth ( Within normal limits ). Head: Normocephalic, Atraumatic. Neck: Decrease extension. Trachea: Midline. Respiratory: Respirations are non-labored, Breath sounds are equal, Symmetrical chest wall expansion. Breath sounds: Within normal limits. Cardiovascular: Normal rate, Regular rhythm, No murmur. Neurologic: Alert, Oriented. Anesthesiologist Assessment and Plan Problems: No previous anesthetic complications, No a/w concerns. Risk of major adverse cardiac event (Revised Cardiac Risk Index): 0 = 0.4%. Cardiovascular risk associated with the procedure: Low (<1%). Disposition: No further testing or evaluation indicated preoperatively, may proceed with procedure as scheduled. ASA Classification: Class III. Anesthetic Plan: Premedication: None. Anesthetic technique discussed: General anesthesia. Induction discussed: Intravenously. Airway plan discussed: Laryngeal mask airway, Oral endotracheal tube, Nasal Cannula. Risks discussed: Nausea-vomiting, Headache, Sore throat, Dental injury, Eye injury, Allergic reaction, Serious complications, Aspiration. Informed consent: Signed by patient. Anesthesia provided by other physicians and anesthesia team: care team . History, Physical Exam, Assessment and Plan Completed: 07/09/2024 12:22:00, MD Nolan, Celestino Vallecillo Electronic Signature on File Electronically Reviewed/Signed by: Celestino Francisco MD Author Signature Dt/Tm:07/09/2024 12:46 PM Department of Anesthesia [facility] Patient Care team information Care Team Personnel Name: MD Anai, Masood Gordon Position: Referring DIRECT Member Role: Primary Care Provider Address: [address] [place] [address] Telecom: [phone] Care Team Related Persons Name: JESSICA MARTINEZ Insurance Providers Guarantor name: [employer] Health Plan Information #: 1 Payer: MEDICARE Member Number: [id number] Policy Number: NA Group Number: [id number] Health Plan Information #: 2 Payer: [facility] Member Number: [id number] Policy Number: NA Group Number: NA
--- NOTE | 2024-10-02 12:49 | History & Physical Report ---
"<Statement entered by Lianet Ponce MD - 10/02/24 20:52> I have reviewed vital signs, chart notes, labs and imaging. I have personally seen, evaluated and examined the patient. I have also discussed the management of the patient with the [facility] and I agree with the exam findings documented in the history and physical examination and the documented assessment and plan unless otherwise stated below. 69-year-old man with history of atrial fibrillation who had a syncopal event related to symptomatic bradycardia. He is on diltiazem CD for rate control as well as apixaban in the ED his heart rate was in the high 30s, I personally reviewed the EKG tracing which shows atrial fibrillation with slow rate, right bundle branch block, no acute ischemic changes. high-sensitivity troponin was negative and BNP elevated at 261 On exam he is awake sitting in bed has multiple people visiting and is quite [place]. He is not having any chest pain or dyspnea at this time. Heart rate is bradycardic and irregular, no murmur. JVP not elevated he does have 2+ bilateral lower extremity pitting edema which is symmetric. I was able to review the TTE done today EF is normal no regional wall motion abnormalities he has a normal CVP with a right atrial pressure of 3 A/P: # symptomatic bradycardia - in afib with slow ventricular rate # syncope related to this, fatigue/dyspnea and lightheadedness since - stop diltiazem, continue apixaban - it's likely the rate will resolve without the AV mason eric, unlikely that he'll need a pacemaker - cardiology consulted - atropine and pacer pads on prn symptomatic bradycardia # Lyme screen is positive - follow up confirmatory testing Date of Service October 02, 2024 Assessment & Plan (1) Symptomatic bradycardia: (2) Episode of syncope: Plan This is a 69-year-old male who presented on 10/02 following a syncopal episode. Coming in for cardiac assessment in the setting of symptomatic bradycardia. #Syncopal episode | Symptomatic bradycardia Lightheaded on Friday 09/29; patient sat down and briefly passed out; no head strike or trauma Heart rate down to 35 bpm the emergency department External pacer was at bedside Lyme screen ordered, pending Activity: Bedrest Cervical spine CT revealed no acute fracture or subluxation Echocardiogram ordered, pending Hold diltiazem (avoid all AV mason blockers) Cardiology evaluation appreciated for potential pacemaker placement Will make patient NPO at midnight Atropine 0.5 mg IV q5m PRN x 3 max doses for symptomatic bradycardia #B/L LE edema Patient does have +1 pitting edema in the lower extremity bilaterally, as well as new onset WEISS BNP mildly elevated at 261 Echo (as above) Strict I&O monitoring Daily weights #Leukocytosis Mild; leukocytosis at 12.45 with a neutrophilic predominance Clinically, patient denies infectious symptoms such as fever, cough, or urinary symptoms Chest CTA without pulmonary embolism or pneumonia UA negative for infection BioFire negative for infection Unclear etiology; ?Stress demargination Trend CBC #Paroxysmal atrial fibrillation Continue Eliquis #HTN Continue losartan, HCTZ #HLD Continue rosuvastatin #GERD Continue PPI Disposition: Obs - admit to PCU telemetry VTE PPx: Eliquis History of Present Illness Chief Complaint: Cardiac assessment, syncope Primary Care Provider: Masood Zapien MD Mr. Clemons is a 69-year-old male with PMH of BPH, Gonsales's esophagus, BRETT, RBBB, metabolic syndrome, HLD, HTN, and A-fib (on Eliquis). He presented on 10/02 for ongoing dizziness/lightheadedness, and a syncopal episode. Patient reports he was standing at a [employer] register to check out on Friday 09/29 when he began to feel lightheaded. He started lowering himself to the ground, and passed out for several seconds. He denies head strike. He sat back up, and was evaluated by an EMT in the store. Patient believes he passed out because he took his morning medication without eating. Ever since Tuesday, he has had ongoing lightheadedness when ambulating, as well as new onset WEISS. No SOB at rest. Patient has a history of atrial fibrillation, but reports he has never been able to feel chest palpitations in the past. He also has a history of iron deficiency anemia, and has required iron infusions in the past. Patient reports he is normally active outdoors (chopping wood, mowing grass, using his tractor, etc.). He denies any rashes or tick bites. No prior history of Lyme disease. No recent change in diet, but reports he does not eat much (only breakfast and dinner). No recent weight changes. He watches his salt intake. Patient denies smoking, tobacco use, or recent alcohol use. Patient is bradycardic at 37 bpm at time of admission. ED course: ROS: Patient endorses syncopal episode, lightheadedness/dizziness, neck stiffness (ongoing), and new onset WEISS (started on Tuesday). Patient denies fever, chills, night sweats, changes in vision (blurry vision, double vision, photophobia), chest pain, chest palpitations, SOB at rest, cough, abdominal pain, N/V/D, burning with urination, blood in the urine/stool, melena, or numbness/tingling in the arms or legs. Allergies Allergy/AdvReac Type Severity Reaction Status Date / Time No Known Allergies Allergy Verified 03/29/24 08:20 Home Medications Medication Instructions Recorded Confirmed Type turmeric (bulk) 95 % powder 1 % miscellaneous QAM 03/23/19 10/02/24 History (Curcumin) acetaminophen 650 mg 650 mg PO QAM 10/11/19 10/02/24 History tablet,extended release ascorbate calcium (vitamin C) 500 1 g PO QAM 05/12/21 10/02/24 History mg tablet cholecalciferol (vitamin D3) 50 50 mcg PO QAM 07/08/23 10/02/24 History mcg (2,000 unit) capsule ferrous sulfate 325 mg (65 mg 325 mg PO WK 09/21/23 10/02/24 History iron) tablet sildenafil 50 mg tablet (Viagra) 50 mg PO DAILY PRN sexual activity 12/01/23 10/02/24 Rx #20 tabs pantoprazole 40 mg tablet,delayed 40 mg PO BID #180 tabs 01/25/24 10/02/24 Rx release losartan 100 mg tablet 100 mg PO QAM #90 tabs 03/02/24 10/02/24 Rx apixaban 5 mg tablet (Eliquis) 5 mg PO BID #60 tabs 08/06/24 10/02/24 Rx hydrochlorothiazide 25 mg tablet 25 mg PO QAM #90 tabs 08/17/24 10/02/24 Rx diltiazem HCl 180 mg 180 mg PO QAM #100 caps 08/21/24 10/02/24 Rx capsule,extended release 24 hr rosuvastatin 5 mg tablet 5 mg PO DAILY #30 tabs 09/09/24 10/02/24 Rx multivitamin 1 tab PO DAILY 10/02/24 10/02/24 History Past Med/Surg History Problem List (Updated 10/02/24 @ 13:27 by Danny Paul PA-C) Episode of syncope Elevated brain natriuretic peptide (BNP) level (Acute) Acute dyspnea (Acute) Lightheadedness (Acute) Symptomatic bradycardia (Acute) BPH (benign prostatic hyperplasia) At increased risk for cardiovascular disease Gonsales's esophagus with low grade dysplasia EGD 07/21/2023 Erectile dysfunction Normal left ventricular systolic function and wall motion Abnormal electrocardiogram Right bundle branch block BRETT (obstructive sleep apnea) Vitamin D insufficiency Class 2 obesity Metabolic syndrome Hyperglycemia Low back pain Chronic sinusitis (Acute) Hyperlipidemia (Chronic) HTN (hypertension) (Chronic) Chronic anticoagulation eliquis daily Afib on eliquis--follows with Dr. Perez Osteoarthritis Barretts esophagus Medical History Right ear impacted cerumen Anemia Morbid obesity due to excess calories Dietary counseling and surveillance HTN (hypertension) History of sleep apnea Iron deficiency anemia Surgical History History of esophagogastroduodenoscopy (EGD) History of tonsillectomy History of hernia repair History of colonoscopy Family History Grandmother (Maternal) Diabetes Other No family history of adverse response to anesthesia Denies family history of Colon cancer Ovarian cancer Prostate cancer Myocardial infarction Breast cancer Lung cancer Colorectal cancer Stroke Social History Smoking Status: Current every day smoker Tobacco Type: Cigars Age Started Using Tobacco: 20; Second Hand Exposure: No; Do You Dip or Chew Tobacco: No; Tobacco Cessation Education Requested by Patient: No Hx Alcohol Use: Yes Alcohol type: beer Hx Substance Use: No Preferred Language: Slovenian Communication Ability: Effective Visual Impairment: Limited Hearing Ability: Normal Noodle Catalyst Maker Required: No Beliefs That Will Affect Care: None marital status: / Current Living Situation: Alone current occupational status: retired 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 How many Children do You have: 2 Other Information That Helps Us Care for You: No Feels Safe at Home: Yes Safety Concerns: Feels Safe At This Time Childhood Exposure to Second-Hand Smoke: No caffeine: Yes Dental Care, Regularly: Yes Physical Activity Frequency: 1-2 Times per Week Seatbelt Use: always Sunscreen Use: Yes Assistive Devices: Glasses Review of Systems Review of Systems: See HPI above Physical Exam Physical Exam: General: no acute distress; pleasant affect; sister bedside; non-toxic appearing; cooperative; SpO2 98% on RA HEENT: normocephalic, atraumatic; no scleral icterus; PERRLA w/ EOMs intact; vision and hearing grossly intact Neck: supple; no lymphadenopathy; trachea midline Skin: warm, dry without signs of tenting; no cyanosis; no rashes, bruising, lesions, or erythema noted CV: chest wall NTP; RR, bradycardic at 35 bpm; S1/S2 normal; no murmurs/rubs/gallops; pulses intact and symmetric at radial, DP, and PT Lungs: no acute respiratory distress; symmetrical chest wall expansion; clear breath sounds across all lung mcgarry w/o adventitious sounds; no wheezing ABD: Soft, NTP; BS present; no rebound/guarding; no distention MSK: no tics or fasciculations; +1 pitting edema noted around the ankles b/l, nonerythematous Neuro: A&Ox3; normal mood and affect; fluent speech; no focal deficits; sensation intact and symmetric in lower extremes bilaterally Results & Data Results & Data Vital Signs (Past 12 Hours) Vital Signs Temp Pulse Pulse Resp BP BP Pulse Ox 10/02/24 11:20 37 L 20 136/69 98 10/02/24 10:09 48 L 18 96 10/02/24 10:00 147/78 H 10/02/24 09:57 49 L 19 97 10/02/24 09:30 51 L 21 10/02/24 09:30 144/80 H 10/02/24 09:19 10/02/24 09:06 52 L 19 10/02/24 09:02 52 L 10/02/24 09:00 147/71 H 10/02/24 08:55 10/02/24 08:54 54 L 13 182/90 H 97 10/02/24 08:38 36.6 C 52 L 18 152/65 H 99 O2 Del Method 10/02/24 11:20 Room Air 10/02/24 10:09 Room Air 10/02/24 10:00 10/02/24 09:57 Room Air 10/02/24 09:30 10/02/24 09:30 10/02/24 09:19 Room Air 10/02/24 09:06 10/02/24 09:02 10/02/24 09:00 10/02/24 08:55 Room Air 10/02/24 08:54 Room Air 10/02/24 08:38 Laboratory Results Abnormal lab results 10/02/24 10/02/24 10/02/24 Range/Units 09:00 09:15 10:35 WBC 12.45 H (4.8-10.8) K/ul RBC 4.52 L (4.70-6.10) M/uL Hgb 13.4 L (14.0-18.0) g/dl Hct 41.5 L (42.0-52.0) % RDW Std Deviation 50.4 H (36.4-46.3) fL RDW Coeff of Sean 14.9 H (11.5-14.5) % Neut # (Auto) 9.14 H (1.40-6.50) K/uL Mclennan # (Auto) 1.28 H (0.11-0.59) K/uL Glucose 134 H (70-99(Fasting)) mg/dl B-Natriuretic Peptide 261 H (0-100) pg/ml Urine pH 8.0 H (4.5-7.5) Urine Protein 1+ H (Negative) Urine Ketones Trace H (Negative) Diagnostic Findings Chest X-Ray 10/02/24 08:57 XR chest 1V portable CLINICAL HISTORY: Dyspnea COMPARISON STUDY: 08/11/2015 FINDINGS: There is moderate cardiomegaly with mild pulmonary vascular congestion. There is density at the low central chest which could be due to the cardiomegaly or hiatal hernia. Inspiration is shallow. There is mild stranding opacity at the lung bases. No lobar consolidation, pleural effusion, or pneumothorax. IMPRESSION: 1. Mild CHF. 2. Atelectasis versus early pneumonia in the lung bases. ACT 112: Negative or not required by law. Electronically signed by: Simón Muro M.D. 10/02/2024 9:[address] 10/02/24 09:32 CT SCAN OF THE CERVICAL SPINE CLINICAL HISTORY: Neck pain. COMPARISON STUDY: None. TECHNIQUE: CT scan of the cervical spine is performed from the skull base to the upper thoracic spine. Images are reviewed in the axial, sagittal, and coronal planes. IV contrast was not administered for this examination. A dose lowering technique was utilized adhering to the principles of ALARA. FINDINGS: Alignment of the cervical spine is anatomic. Vertebral body heights are maintained. There are no cervical spine fractures. No osseous lesions are identified. There is moderate multilevel facet arthrosis and degenerative disc disease within the cervical spine. Disc space narrowing is most pronounced at the C5-C6 and C6-C7 levels. There is associated osteophytosis. The central canal and neural foramen are suboptimally assessed given CT technique. However, there is no evidence for severe central canal stenosis on this exam. Prevertebral soft tissues are unremarkable. Chest CT will be reported separately. IMPRESSION: 1. No acute cervical spine fracture or subluxation. 2. Moderate multilevel degenerative disc disease and facet arthrosis within the cervical spine. Suboptimal evaluation of the central canal and neural foramen given CT technique but no evidence for severe central canal stenosis on this study. ACT 112: Negative or not required by law. Electronically signed by: Carlos Enrique Siddiqui M.D. 10/02/2024 11:11 AM Chest CTA 10/02/24 09:32 CT angio chest PE protocol CT DOSE: 1515.74 mGy.cm HISTORY: 69 years-old Male with PE. Acute shortness of breath with chest and neck pain TECHNIQUE: Multiple CTA images of the chest were obtained after the intravenous administration of 119 ml Optiray. Coronal and sagittal MIPS were obtained from the axial data set and were submitted for review. All measurements were obtained according to NASCET criteria. A dose lowering technique was utilized adhering to the principles of ALARA. COMPARISON: Chest x-ray of same day FINDINGS: CTA: Moderate cardiomegaly. No pericardial effusion. There is minimal coronary artery calcifications. Fusiform dilation of the ascending thoracic aorta, 4.3 x 4.2 cm. No dissection. No pulmonary emboli are seen. CT CHEST: Unremarkable thyroid. No lymphadenopathy. No pneumothorax, pleural effusion or overt pulmonary edema. Linear subsegmental atelectasis versus scarring. No suspicious pulmonary nodules or masses. The central airways appear patent. Moderate sized hiatal hernia. Mid to distal esophageal wall thickening. Unremarkable soft tissues.r indeterminate hypodense 1.8 cm splenic lesion. No acute fracture. IMPRESSION: 1. No pulmonary emboli. 2. Cardiomegaly with mild fusiform dilation of the ascending thoracic aorta, 4.3 x 4.2 cm. 3. No pleural effusion or airspace consolidation typical for pneumonia. 4. Moderate sized hiatal hernia with mild mid to distal esophageal wall thickening which may represent a nonspecific esophagitis. ACT 112: Negative or not required by law. The above report was generated using voice recognition software. It may contain grammatical, syntax or spelling errors. Electronically signed by: Toni Wilkerson M.D. 10/02/2024 11:25 AM ECG Additional Comments: ECG revealed undetermined rhythm at 52 bpm; QTc 446; RBBB (present on prior EKG) Code Status & VTE Plan Code Status Full code VTE Prophylaxis Plan VTE Prophylaxis will be ordered: Yes PG Care Time/CCT Total # of Minutes Spent Total Time Spent with Patient: Total time spent is greater than 50% in coordination of care (as documented) at patient's floor/unit and/or counseling patient: C[place] [address] INT INP/OBS CARE 3/75MIN Patient Type Established History Comprehensive Exam Comprehensive Medical Decision Making High Complexity Diagnoses Symptomatic bradycardia R00.1 Episode of syncope R55"
[2024-10-02] MEDS ORDERED: ATROPINE SULFATE 0.1 MG/ML 10ML SYR IV PRN (13:15)
--- NOTE | 2024-10-02 13:18 | Electrocardiogram Report ---
Test Reason : Blood Pressure : */* mmHG Vent. Rate : 52 BPM Atrial Rate : 48 BPM P-R Int : * ms QRS Dur : 146 ms QT Int : 480 ms P-R-T Axes : * -15 0 degrees QTcB Int : 446 ms Atrial fibrillation Right bundle branch block Septal infarct , age undetermined Abnormal ECG When compared with ECG of 11-Aug-2015 20:37, Atrial fibrillation now present Septal infarct is now Present Confirmed by Yohan Gatica ([id number]) on 10/02/2024 1:18:09 PM Referred By: Confirmed By: Yohan Gatica
--- NOTE | 2024-10-02 15:17 | XCELERA ---
[id number]
[2024-10-02 20:08] LABS: Lyme Screen Rflx Confirmation Positive (Negative)
[2024-10-02] MEDS: PANTOprazole 40 MG TAB PO SCH (20:44)
[2024-10-02] MEDS: APIXABAN 5 MG TABLET PO SCH (20:44)
[2024-10-02 20:51] LABS: Lyme Ab IgG 2nd Tier Confirm Positive (Negative); Lyme Ab IgM 2nd Tier Confirm Negative (Negative)
[2024-10-03] MEDS: cefTRIAXone SODIUM 2,000 MG/50 ML BAG IV SCH ×2 (00:07→20:51)
--- NOTE | 2024-10-03 04:24 | Communication Note ---
Date of Service: October 03, 2024 Earlier this evening around 0300 I was alerted via TT that pt had 3 second pause followed by another 3 second pause, HR per chart 30-40s. Pt initially admitted for symptomatic bradycardia. Initial prelim lyme test positive. Went to telemetry; pt noted to be 30-40s HR, no pauses prior to these two episodes. Went to bedside. Pt is totally asymptomatic, states he is feeling well, no concerns. Atropine prn order in from admitting team and none given. CTX initially given for prelim positive lyme and pt received 1 dose. Per chart review later, IgG positive but IgM negative. CTX was stopped. Suspect bradycardia most likely from his home diltiazem at this time, last dose 5/20 in the am, although lyme cannot be fully excluded as pt could be in the window period for new infection and IgM levels may not yet be detectable. Resident Activity Tracking Resident Involvement: Resident Care Provided Care Provided: Adult Hospital Medicine
[2024-10-03 05:41] LABS: Basophils # (auto) 0.05 K/uL (0.00-0.20); Basophils % (auto) 0.5 %; Eosinophils # (auto) 0.06 K/uL (0.00-0.50); Eosinophils % (auto) 0.6 %; Hemoglobin 11.7 g/dl (14.0-18.0); Immature Granulocytes # (auto) 0.03 K/uL (0.01-0.20); Immature Granulocytes % (auto) 0.3 %; Lymphocytes # (auto) 1.71 K/uL (1.20-3.40); Lymphocytes % (auto) 17.4 %; Mean Corpuscular Hemoglobin 29.5 pg (25.0-34.0); Mean Corpuscular Hgb Conc 32.5 g/dL (32.0-36.0); Mean Corpuscular Volume 90.7 fL (80.0-100.0); Mean Platelet Volume 11.3 fL (9.4-12.4); Monocytes # (auto) 1.38 K/uL (0.11-0.59); Monocytes % (auto) 14.1 %; Neutrophils # (auto) 6.58 K/uL (1.40-6.50); Neutrophils % (auto) 67.1 %; Platelet Count 224 K/uL (130-400); RDW Coefficient of Variation 14.9 % (11.5-14.5); RDW Standard Deviation 49.4 fL (36.4-46.3); Red Blood Count 3.97 M/uL (4.70-6.10); White Blood Count 9.81 K/ul (4.8-10.8)
[2024-10-03 05:55] LABS: BUN Creatinine Ratio 19.2 (10-20); Calcium 8.4 mg/dl (8.6-10.3); Creatinine Clr Calc Pharmacy 88.5 ml/min; Potassium 3.9 mmol/L (3.5-5.1)
--- NOTE | 2024-10-03 07:07 | Hospitalist Progress Note ---
"Date of Service October 03, 2024 Assessment & Plan (1) Symptomatic bradycardia: (2) Episode of syncope: Plan This is a 69-year-old male who presented on 10/02 following a syncopal episode. Admitted for cardiac assessment in the setting of symptomatic bradycardia. #Syncopal episode | Symptomatic bradycardia Lightheaded on Friday 09/29; patient sat down and briefly passed out; no head strike or trauma. Heart rate down to 35 bpm the emergency department. Fluctuating between 93- 37 bmp since admission. Lyme screen IgG pos, IgM negative- no active infection. Echocardiogram shows EF 60-65%, Tricuspid regurgitation, no wall acute wall abnormalities. Cervical spine CT revealed no acute fracture or subluxation - External pacer was at bedside - Hold diltiazem (avoid all AV mason blockers) - Cardiology evaluation appreciated for potential pacemaker placement - Atropine 0.5 mg IV q5m PRN x 3 max doses for symptomatic bradycardia - Continue IV CTX and reassess 10/04/24 for resolution of bradycardia #B/L LE edema Patient does have +1 pitting edema in the lower extremity bilaterally, as well as new onset WEISS. BNP mildly elevated at 261. Echo completed showing good EF. - Strict I&O monitoring - Daily weights #Leukocytosis Mild; leukocytosis at 12.45 with a neutrophilic predominance in ED . Pt continue to deny infectious symptoms such as fever, cough, or urinary symptoms. Chest CTA without pulmonary embolism or pneumonia. UA negative for infection. BioFire negative for infection. WBC this morning in normal range at 9.81 with reduction in neutrophils. - Unclear etiology - Trend CBC #Paroxysmal atrial fibrillation Continue Eliquis #HTN Continue losartan, HCTZ #HLD Continue rosuvastatin #GERD Continue PPI Disposition: Obs, PCU telemetry VTE PPx: Eliquis Diet: heart healthy, NPO after midnight Admission and Anticipated Discharge Date Admission Date: October 02, 2024 Supervising Physician Co-Signing Physician Notes I personally examined the patient and verified all leahy points of history and exam, discussed case, and agree with decision making with Dr Dumont feeling ok right now, hasn't gotten up much though. not opposed to pacer but would like a little more time to be sure it's truly needed vitals noted nad heent nc at mmm breathing unlabored no accessory muscles good effort skin no rashes no pallor or icterus bradycardic symptomatic bradycardia - most likely due to intrinsic conduction disease/most likely will need pacemaker; at the same time not unreasonable to see if rates improve off diltiazem a little longer; and while lyme testing suggests old infection we are in an endemic area - not unreasonable to treat as though this could be lyme carditis. pt aware most likely these measures will not remedy the bradycardia but understandably he would like to try -follow Subjective Over night, pt's HR fluctuated between 93 and 37. This morning, Pt reports some dizziness and SOB when walking, but none at rest. Pt denies chest pain, cough, abdominal pain, N/V/D, headaches, fever/chills, or extremity numbness. Review of Systems Review of Systems: As per HPI Physical Exam Physical Exam: General: no acute distress; pleasant affect; HEENT: normocephalic, atraumatic; no scleral icterus; PERRLA w/ EOMs intact; vision and hearing grossly intact Neck: supple; no lymphadenopathy; trachea midline Skin: warm, dry without signs of tenting; no cyanosis; no rashes, bruising, lesions, or erythema noted CV: Bradycardic in high 30's; S1/S2 normal; no murmurs/rubs/gallops; pulses in tact and symmetric at radial and DP Lungs: no acute respiratory distress; symmetrical chest wall expansion; clear breath sounds across all lung mcgarry w/o adventitious sounds; no wheezing ABD: Soft, NTP; BS present; no rebound/guarding; no distention MSK: no tics or fasciculations; trace pitting edema noted around the ankles b/l, nonerythematous Neuro: A&Ox3; normal mood and affect; fluent speech; no focal deficits; sensation intact and symmetric in lower extremes bilaterally Results & Data Results & Data Vital Signs (Past 12 Hours) Vital Signs Temp Pulse Pulse Resp BP Pulse Ox O2 Del Method 10/03/24 02:48 36.6 C 37 L 16 102/52 L 94 Room Air 10/02/24 22:28 36.7 C 40 L 20 132/76 95 Room Air 10/02/24 21:00 Room Air 10/02/24 19:25 37.0 C 41 L 18 126/78 95 Room Air Resident Activity Tracking Resident Involvement: Resident Care Provided Care Provided: Adult Hospital Medicine"
[2024-10-03] MEDS: LOSARTAN POTASSIUM 50 MG TAB PO SCH (08:11)
[2024-10-03] MEDS: ROSUVASTATIN CALCIUM 5 MG TAB PO SCH (08:11)
[2024-10-03] MEDS: hydroCHLOROthiazide 25 MG TAB PO SCH (08:11)
--- NOTE | 2024-10-03 09:47 | Cardiology Consultation ---
Date of Consultation October 03, 2024 Assessment & Plan (1) Episode of syncope: (2) Symptomatic bradycardia: (3) Atrial fibrillation with slow ventricular response: (4) Diastolic CHF: (5) HTN (hypertension): (6) Hyperlipidemia: Plan Mr. Clemons is a 69 year old male with a history of Hypertension, Hyperlipidemia, Metabolic Syndrome, BRETT, Chronic RBBB, Gonsales's Esophagus, and Permanent Atrial Fibrillation who was admitted on 10/02/24 due to Symptomatic Bradycardia/A-Fib with slow ventricular response resulting in a Syncopal Episode. Patient was in his usual state of health when he woke up on Tuesday09/29/24, but he did not eat any breakfast and took all of his usual medications on an empty stomach (including Diltiazem CD 180 mg) and shortly after that he began to experience lightheadedness. Patient was then standing at a burr register to check out and he began to feel profoundly lightheaded. He started lowering himself to the ground, and then had a Syncopal Episode for several seconds. He subsequently was able to sit back up, and was evaluated by an EMT in the store. Ever since Tuesday, he has had ongoing and significant lightheadedness when ambulating, as well as new onset WEISS. No SOB at rest. He was then seen at [facility] ER and on cardiac monitoring he was in A-Fib with Slow Ventricular Response with heart rates ranging from 30 to 41 bpm. EKG showed A- Fib with slow ventricular response at 52 bpm, RBBB, and an age indeterminate septal infarct pattern. Corrected QT interval is 446 msec. Laboratories showed an elevated WBC count and a mild anemia. Electrolytes are within normal limits, normal BUN and serum creatinine. Lyme screen and Lyme IgG were positive, however his confirmatory Lyme IgM is negative. Patient was subsequently admitted and received a dose of IV Ceftriaxone 2000 mg last night around midnight. On ongoing cardiac monitoring, he remains bradycardic with heart rates ranging from the upper 20's to 40 bpm. Additionally he had a 3.6 second pause earlier today. He has not had any further syncopal episodes but he has been in bed for the most part. He offers no other complaints. Patient has not experienced any classic angina pectoris but he still experiences exertional dyspnea and he has evidence of CHF on his CXR and as demonstrated by his elevated BNP at 261 pg/mL. He had his last dose of Diltiazem CD 180 mg over 24 hours ago. His diagnosis may or may not be Lyme Carditis as his Lyme antibody was positive, Lyme IgG was positive, but Lyme IgM is negative. At this point, I think it is very reasonable to continue IV Ceftriaxone for at least another 24-48 hours before making a decision on a permanent pacemaker. Although he is bradycardic, he has been hemodynamically stable throughout his hospitalization and he has the external pacemaker pads on and atropine available. Recommend the followin. Remain off of any negative chronotropic medications. 2. Continue Eliquis 5 mg b.i.d.. 3. Give a dose of IV Lasix 60 mg x 1. 4. Continue Losartan 100 mg daily. 5. Continue Hydrochlorothiazide 25 mg daily. 6. Continue Rosuvastatin 5 mg daily. 7. Consider permanent pacemaker implantation over the next 24-48 hours based on his clinical response to antibiotic therapy. 8. Monitor I&Os. 9. Monitor daily body weights. Thank you for asking us to see this patient consultation. We will continue to follow him along while hospitalized and afterwards. History of Present Illness Reason for Consultation: -- Syncope. -- Permanent Atrial Fibrillation now with slow ventricular response. -- Symptomatic Bradycardia. Requesting Physician: Parrish Jang DO Attending Physician: Yohan Gatica MD History of Present Illness Mr. Clemons is a 69 year old male with a history of Hypertension, Hyperlipidemia, Metabolic Syndrome, BRETT, Chronic RBBB, Gonsales's Esophagus, and Permanent Atrial Fibrillation who was admitted on 10/02/24 due to Symptomatic Bradycardia/A-Fib with slow ventricular response resulting in a Syncopal Episode. Patient was in his usual state of health when he woke up on Tuesday09/29/24, but he did not eat any breakfast and took all of his usual medications on an empty stomach (including Diltiazem CD 180 mg) and shortly after that he began to experience lightheadedness. Patient was then standing at a burr register to check out and he began to feel profoundly lightheaded. He started lowering himself to the ground, and then had a Syncopal Episode for several seconds. He subsequently was able to sit back up, and was evaluated by an EMT in the store. Ever since Tuesday, he has had ongoing and significant lightheadedness when ambulating, as well as new onset WEISS. No SOB at rest. He was then seen at [facility] ER and on cardiac monitoring he was in A-Fib with Slow Ventricular Response with heart rates ranging from 30 to 41 bpm. EKG showed A- Fib with slow ventricular response at 52 bpm, RBBB, and an age indeterminate septal infarct pattern. Corrected QT interval is 446 msec. Laboratories showed an elevated WBC count and a mild anemia. Electrolytes are within normal limits, normal BUN and serum creatinine. Lyme screen and Lyme IgG were positive, however his confirmatory Lyme IgM is negative. Patient was subsequently admitted and received a dose of IV Ceftriaxone 2000 mg last night around midnight. On ongoing cardiac monitoring, he remains bradycardic with heart rates ranging from the upper 20's to 40 bpm. Additionally he had a 3.6 second pause earlier today. He has not had any further syncopal episodes but he has been in bed for the most part. He still has exertional dyspnea and evidence of CHF on his CXR and as demonstrated by his elevated BNP at 261 pg/mL. He offers no other complaints. He denies any exertional chest pain, heaviness, tightness, pressure, or discomfort. He denies any exertional neck, jaw, back, or arm pain. He denies shortness of breath at rest, orthopnea, or PND. He denies any palpitations at any time. He had his last dose of Diltiazem CD 180 mg over 24 hours ago. ECHOCARDIOGRAM 10/02/24: 1. Normal LV size, wall motion, and systolic function. 2. Mild concentric LVH. 3. LVEF 60% to 65% 4. Mild TR. Allergies Allergy/AdvReac Type Severity Reaction Status Date / Time No Known Allergies Allergy Verified 03/29/24 08:20 Home Medications Medication Instructions Recorded Confirmed Type turmeric (bulk) 95 % powder 1 % miscellaneous QAM 03/23/19 10/02/24 History (Curcumin) acetaminophen 650 mg 650 mg PO QAM 10/11/19 10/02/24 History tablet,extended release ascorbate calcium (vitamin C) 500 1 g PO QAM 05/12/21 10/02/24 History mg tablet cholecalciferol (vitamin D3) 50 50 mcg PO QAM 07/08/23 10/02/24 History mcg (2,000 unit) capsule ferrous sulfate 325 mg (65 mg 325 mg PO WK 09/21/23 10/02/24 History iron) tablet sildenafil 50 mg tablet (Viagra) 50 mg PO DAILY PRN sexual activity 12/01/23 10/02/24 Rx #20 tabs pantoprazole 40 mg tablet,delayed 40 mg PO BID #180 tabs 01/25/24 10/02/24 Rx release losartan 100 mg tablet 100 mg PO QAM #90 tabs 03/02/24 10/02/24 Rx apixaban 5 mg tablet (Eliquis) 5 mg PO BID #60 tabs 08/06/24 10/02/24 Rx hydrochlorothiazide 25 mg tablet 25 mg PO QAM #90 tabs 08/17/24 10/02/24 Rx diltiazem HCl 180 mg 180 mg PO QAM #100 caps 08/21/24 10/02/24 Rx capsule,extended release 24 hr rosuvastatin 5 mg tablet 5 mg PO DAILY #30 tabs 09/09/24 10/02/24 Rx multivitamin 1 tab PO DAILY 10/02/24 10/02/24 History Patient History Medical History Right ear impacted cerumen Anemia Morbid obesity due to excess calories BMI 43.1 Dietary counseling and surveillance HTN (hypertension) History of sleep apnea resolved with wt loss Iron deficiency anemia Surgical History History of esophagogastroduodenoscopy (EGD) History of tonsillectomy History of hernia repair Left inguinal History of colonoscopy Family History Grandmother (Maternal) Diabetes Other No family history of adverse response to anesthesia Denies family history of Colon cancer Ovarian cancer Prostate cancer Myocardial infarction Breast cancer Lung cancer Colorectal cancer Stroke Social History Smoking Status: Current every day smoker Tobacco Type: Cigars Age Started Using Tobacco: 20; Second Hand Exposure: No; Do You Dip or Chew Tobacco: No; Tobacco Cessation Education Requested by Patient: No Hx Alcohol Use: Yes Alcohol type: beer Hx Substance Use: No Preferred Language: Honduran Communication Ability: Effective Visual Impairment: Limited Hearing Ability: Normal Medical Equipment Technician Required: No Beliefs That Will Affect Care: None marital status: / Current Living Situation: Alone current occupational status: retired 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 Physical Exam Physical Exam: Blood pressure 144/73, pulse 36 bpm and irregularly irregular. GENERAL: Patient in no acute distress. HEENT: Head is atraumatic, normocephalic. EOM's intact. Facies symmetric. No perioral cyanosis. NECK: No JVD. JVP is elevated. Carotid upstrokes are + 2 bilaterally without bruits. CHEST/LUNGS: Increased breath sounds in bilateral bases. CVS: S1 and S2 are irregularly irregular and markedly bradycardic without murmurs, gallops, or rubs. PMI is nonpalpable. No lifts, heaves, or thrills. No abdominal aortic or renal bruits. ABDOMINAL EXAM: Bowel sounds are present. EXTREMITIES: No clubbing or cyanosis. No edema. Extremities are well perfused. NEUROLOGIC EXAM: Patient is awake, alert, and oriented. Pleasant and cooperative. Answers questions appropriately. Speech is clear. Results & Data Vital Signs (Past 12 Hours) Vital Signs Temp Pulse Pulse Resp BP Pulse Ox O2 Del Method 10/03/24 07:12 37.0 C 36 L 16 144/73 H 95 Room Air 10/03/24 02:48 36.6 C 37 L 16 102/52 L 94 Room Air 10/02/24 22:28 36.7 C 40 L 20 132/76 95 Room Air Laboratory Results Laboratory Results - last 24 hr 10/02/24 10/02/24 10/02/24 09:00 09:15 10:35 WBC RBC Hgb Hct MCV MCH MCHC RDW Std Deviation RDW Coeff of Sean Plt Count MPV Immature Gran % (Auto) Neut % (Auto) Lymph % (Auto) [place] % (Auto) Eos % (Auto) Baso % (Auto) Neut # (Auto) Lymph # (Auto) [place] # (Auto) Eos # (Auto) Baso # (Auto) Immature Gran # (Auto) Sodium Potassium Chloride Carbon Dioxide Anion Gap BUN Creatinine Est Cr Clr Drug Dosing eGFR BUN/Creatinine Ratio Glucose Calcium Urine Color Yellow Urine Appearance Clear Urine pH 8.0 H Ur Specific [place] 1.021 Urine Protein 1+ H Urine Glucose (UA) Negative Urine Ketones Trace H Urine Blood Negative Urine Nitrite Negative Urine Bilirubin Negative Urine Urobilinogen Negative Ur Leukocyte Esterase Negative Urine WBC (Auto) 0-5 Urine RBC (Auto) 0-2 U Hyaline Cast (Auto) 0-2 U Epithel Cells (Auto) 0-2 Urine Bacteria (Auto) None Seen Urine Comment Adenovirus (PCR) Not Detected B. pertussis DNA (PCR) Not Detected B.parapertussis DNA PCR Not Detected Lyme Disease Screen Positive H Lyme Tier 2 IgG Confirm Positive H Lyme Tier 2 IgM Confirm Negative C. pneumoniae DNA (PCR) Not Detected Coronavirus OC43 (PCR) Not Detected Coronavirus HKU1 (PCR) Not Detected Coronavirus 229E (PCR) Not Detected SARS-CoV-2 (PCR) Not Detected Coronavirus NL63 (PCR) Not Detected Human Metapneumovir PCR Not Detected Influenza Type A (PCR) Not Detected Influenza Type B (PCR) Not Detected M. pneumoniae (PCR) Not Detected Parainfluenza 1 (PCR) Not Detected Parainfluenza 2 (PCR) Not Detected Parainfluenza 3 (PCR) Not Detected Parainfluenza 4 (PCR) Not Detected RSV (PCR) Not Detected Entero/Rhino (PCR) Not Detected 10/03/24 05:21 WBC 9.81 RBC 3.97 L Hgb 11.7 L Hct 36.0 L MCV 90.7 MCH 29.5 MCHC 32.5 RDW Std Deviation 49.4 H RDW Coeff of Sean 14.9 H Plt Count 224 MPV 11.3 Immature Gran % (Auto) 0.3 Neut % (Auto) 67.1 Lymph % (Auto) 17.4 [place] % (Auto) 14.1 Eos % (Auto) 0.6 Baso % (Auto) 0.5 Neut # (Auto) 6.58 H Lymph # (Auto) 1.71 [place] # (Auto) 1.38 H Eos # (Auto) 0.06 Baso # (Auto) 0.05 Immature Gran # (Auto) 0.03 Sodium 138 Potassium 3.9 Chloride 104 Carbon Dioxide 27 Anion Gap 7 BUN 20 Creatinine 1.04 Est Cr Clr Drug Dosing 88.5 eGFR 77.25 BUN/Creatinine Ratio 19.2 Glucose 105 H Calcium 8.4 L Urine Color Urine Appearance Urine pH Ur Specific Friendship Urine Protein Urine Glucose (UA) Urine Ketones Urine Blood Urine Nitrite Urine Bilirubin Urine Urobilinogen Ur Leukocyte Esterase Urine WBC (Auto) Urine RBC (Auto) U Hyaline Cast (Auto) U Epithel Cells (Auto) Urine Bacteria (Auto) Urine Comment Adenovirus (PCR) B. pertussis DNA (PCR) B.parapertussis DNA PCR Lyme Disease Screen Lyme Tier 2 IgG Confirm Lyme Tier 2 IgM Confirm C. pneumoniae DNA (PCR) Coronavirus OC43 (PCR) Coronavirus HKU1 (PCR) Coronavirus 229E (PCR) SARS-CoV-2 (PCR) Coronavirus NL63 (PCR) Human Metapneumovir PCR Influenza Type A (PCR) Influenza Type B (PCR) M. pneumoniae (PCR) Parainfluenza 1 (PCR) Parainfluenza 2 (PCR) Parainfluenza 3 (PCR) Parainfluenza 4 (PCR) RSV (PCR) Entero/Rhino (PCR) Diagnostic Findings CXR 10/02/24: FINDINGS: There is moderate cardiomegaly with mild pulmonary vascular congestion. There is density at the low central chest which could be due to the cardiomegaly or hiatal hernia. Inspiration is shallow. There is mild stranding opacity at the lung bases. No lobar consolidation, pleural effusion, or pneumothorax. IMPRESSION: 1. Mild CHF. 2. Atelectasis versus early pneumonia in the lung bases. CHEST CTA 10/02/24: Moderate cardiomegaly. No pericardial effusion. There is minimal coronary artery calcifications. Fusiform dilation of the ascending thoracic aorta, 4.3 x 4.2 cm. No dissection. No pulmonary emboli are seen. CT CHEST: Unremarkable thyroid. No lymphadenopathy. No pneumothorax, pleural effusion or overt pulmonary edema. Linear subsegmental atelectasis versus scarring. No suspicious pulmonary nodules or masses. The central airways appear patent. Moderate sized hiatal hernia. Mid to distal esophageal wall thickening. Unremarkable soft tissues.r indeterminate hypodense 1.8 cm splenic lesion. No acute fracture. IMPRESSION: 1. No pulmonary emboli. 2. Cardiomegaly with mild fusiform dilation of the ascending thoracic aorta, 4.3 x 4.2 cm. 3. No pleural effusion or airspace consolidation typical for pneumonia. 4. Moderate sized hiatal hernia with mild mid to distal esophageal wall thickening which may represent a nonspecific esophagitis. Medications Administered Medication List Apixaban (Apixaban 5 Mg Tablet) 5 mg PO BID [facility] Stop: 11/01/24 20:59 Last Admin: 10/03/24 08:11 Dose: 5 mg Documented By: Admin: 10/02/24 20:44 Dose: 5 mg Documented By: ARSENIO Hydrochlorothiazide (Hydrochlorothiazide 25 Mg Tab) 25 mg PO QAM [facility] Stop: 11/02/24 08:59 Last Admin: 10/03/24 08:11 Dose: 25 mg Documented By: VICKI Losartan Potassium (Losartan Potassium 50 Mg Tab) 100 mg PO QAM [facility] Stop: 11/02/24 08:59 Last Admin: 10/03/24 08:11 Dose: 100 mg Documented By: VICKI Pantoprazole Sodium (Pantoprazole 40 Mg Tab) 40 mg PO BID [facility] Stop: 11/01/24 20:59 Last Admin: 10/03/24 08:11 Dose: 40 mg Documented By: Admin: 10/02/24 20:44 Dose: 40 mg Documented By: ARSENIO Rosuvastatin Calcium (Rosuvastatin Calcium 5 Mg Tab) 5 mg PO DAILY [facility] Stop: 11/02/24 08:59 Last Admin: 10/03/24 08:11 Dose: 5 mg Documented By: VICKI Discontinued Medications Ceftriaxone Sodium (Rocephin) 2,000 mg in 50 mls @ 100 mls/hr IV Q24H [facility] Stop: 10/12/24 21:59 Last Infusion: 10/03/24 00:15 Dose: Infused Documented By: Admin: 10/03/24 00:07 Dose: 100 mls/hr Documented By: ARSENIO Ioversol (Optiray 320 125ml) 119 ml IV ONCE ONE Stop: 10/02/24 10:56 Last Admin: 10/02/24 10:55 Dose: 119 ml Documented By: ASA PG Care Time/CCT Total # of Minutes Spent Total Time Spent with Patient: Total time spent is greater than 50% in coordination of care (as documented) at patient's floor/unit and/or counseling patient:45 [place] [address] INT INP/OBS CARE 2MIN Patient Type Established History Comprehensive Exam Comprehensive Medical Decision Making Moderate Complexity Diagnoses Syncope, unspecified syncope type R55 Syncope type: unspecified Symptomatic bradycardia R00.1 Atrial fibrillation with slow ventricular response I48.91 Acute diastolic congestive heart failure I50.31 Heart failure chronicity: acute Primary hypertension I10 Hypertension type: primary hypertension Mixed hyperlipidemia E78.2 Hyperlipidemia type: mixed hyperlipidemia Time Spent (min) 68 (1) Episode of syncope Syncope type: unspecified Qualified Code(s): R55 - Syncope and collapse (4) Diastolic CHF Heart failure chronicity: acute Qualified Code(s): I50.31 - Acute diastolic (congestive) heart failure (5) HTN (hypertension) Hypertension type: primary hypertension Qualified Code(s): I10 - Essential (primary) hypertension (6) Hyperlipidemia Hyperlipidemia type: mixed hyperlipidemia Qualified Code(s): E78.2 - Mixed hyperlipidemia
[2024-10-03] MEDS: FUROSEMIDE 40 MG/4 ML VIAL IV ONE (11:12)
--- NOTE | 2024-10-03 12:39 | Billing Data ---
Date of Service October 03, 2024 Coding Level of Care Code 04663 SUB INP/OBS CARE
--- NOTE | 2024-10-03 12:40 | Billing Data ---
Date of Service October 03, 2024 Coding Level of Care Code 39272 SUB INP/OBS CARE
--- NOTE | 2024-10-03 14:37 | Electrocardiogram Report ---
Test Reason : Blood Pressure : */* mmHG Vent. Rate : 40 BPM Atrial Rate : * BPM P-R Int : * ms QRS Dur : 142 ms QT Int : 608 ms P-R-T Axes : * 28 8 degrees QTcB Int : 495 ms Poor data quality, interpretation may be adversely affected Atrial fibrillation with slow ventricular response Right bundle branch block Abnormal ECG When compared with ECG of 02-Oct-2024 09:49, (unconfirmed) No significant change was found Confirmed by Yhoan Gatica ([id number]) on 10/03/2024 2:37:30 PM Referred By: REFERRED SELF Confirmed By: Yohan Gatica
--- NOTE | 2024-10-04 06:42 | Hospitalist Progress Note ---
"Date of Service October 04, 2024 Assessment & Plan (1) Symptomatic bradycardia: (2) Episode of syncope: Plan This is a 69-year-old male who presented on 10/02 following a syncopal episode. Admitted for cardiac assessment in the setting of symptomatic bradycardia. #Syncopal episode | Symptomatic bradycardia Lightheaded on Friday 09/29; patient sat down and briefly passed out; no head strike or trauma. Heart rate down to 35 bpm the emergency department. Echocardiogram shows EF 60-65%, Tricuspid regurgitation, no wall acute wall abnormalities. Fluctuating between 35-46 bmp in the last 24 hours. Lyme screen IgG pos, IgM negative- no active infection indicated. IV CTX was continued yesterday and diltiazem held without improvement in HR. - External pacer was at bedside - Atropine 0.5 mg IV q5m PRN x 3 max doses for symptomatic bradycardia - Holding diltiazem (avoid all AV mason blockers) - Cardiology following- appreciated for potential pacemaker placement - Continue IV CTX Pending decision on pacemaker placement #B/L LE edema Patient does have +1 pitting edema in the lower extremity bilaterally, as well as new onset WEISS. BNP mildly elevated at 261. Echo completed showing good EF. - Strict I&O monitoring - Daily weights #Leukocytosis Mild; leukocytosis at 12.45 with a neutrophilic predominance in ED . Pt continue to deny infectious symptoms such as fever, cough, or urinary symptoms. Chest CTA without pulmonary embolism or pneumonia. UA negative for infection. BioFire negative for infection. WBC this morning in normal range - Unclear etiology - Trend CBC #Paroxysmal atrial fibrillation Continue Eliquis #HTN Continue losartan, HCTZ #HLD Continue rosuvastatin #GERD Continue PPI Disposition: PCU telemetry VTE PPx: Eliquis Diet: NPO in preparation for possible procedure Admission and Anticipated Discharge Date Admission Date: October 03, 2024 Supervising Physician Co-Signing Physician Notes I personally examined the patient and verified all leahy points of history and exam, discussed case, and agree with decision making with Dr Dumont no new symptoms, no improvement in HR. for pacer. expresses good understanding vitals noted nad heent nc at mmm breathing unlabored no accessory muscles good effort skin no rashes no pallor or icterus bradycardic symptomatic bradycardia - most likely due to intrinsic conduction disease/most likely will need pacemaker; did not improve w treatment for potential (but unlikely other than that we're in an endemic area) lyme carditis, did not improve with cessation of calcium channel eric - for pacer. otherwise as above Subjective Over night, pt's HR fluctuated between 35-46. This morning, Pt continues to report dizziness and SOB when walking, but none at rest. Pt denies chest pain, cough, abdominal pain, N/V/D, headaches, fever/chills, or extremity numbness. Review of Systems Review of Systems: As per HPI Physical Exam Physical Exam: General: no acute distress; pleasant affect; HEENT: normocephalic, atraumatic; no scleral icterus; PERRLA w/ EOMs intact; vision and hearing grossly intact Neck: supple; no lymphadenopathy; trachea midline Skin: warm, dry without signs of tenting; no cyanosis; no rashes, bruising, lesions, or erythema noted CV: Bradycardic in high 30's, irregular; S1/S2 normal; no murmurs/rubs/gallops; pulses intact and symmetric at radial and DP Lungs: no acute respiratory distress; symmetrical chest wall expansion; clear breath sounds across all lung mcgarry w/o adventitious sounds; no wheezing ABD: Soft, NTP; BS present; no rebound/guarding; no distention MSK:Strength is grossly 5/5, 1+ pitting edema noted around the ankles L>R, nonerythematous Neuro: A&Ox3; normal mood and affect; fluent speech; no focal deficits; sensation intact and symmetric in lower extremes bilaterally Results & Data Results & Data Vital Signs (Past 12 Hours) Vital Signs Temp Pulse Pulse Resp BP Pulse Ox O2 Del Method 10/04/24 04:06 36.6 C 40 L 20 148/80 H 94 Room Air 10/03/24 23:02 36.7 C 44 L 20 134/68 95 Room Air 10/03/24 22:19 46 L 10/03/24 20:36 36.6 C 39 L 20 130/75 96 Room Air 10/03/24 19:45 Room Air Resident Activity Tracking Resident Involvement: Resident Care Provided Care Provided: Adult Hospital Medicine (2) Episode of syncope Syncope type: unspecified Qualified Code(s): R55 - Syncope and collapse"
[2024-10-04 07:18] LABS: Hematocrit (blood only) 37.9 % (42.0-52.0); Hemoglobin 12.2 g/dl (14.0-18.0); Mean Corpuscular Hgb Conc 32.2 g/dL (32.0-36.0); Mean Corpuscular Volume 90.2 fL (80.0-100.0); Mean Platelet Volume 11.3 fL (9.4-12.4); Platelet Count 234 K/uL (130-400); RDW Coefficient of Variation 14.9 % (11.5-14.5); RDW Standard Deviation 48.8 fL (36.4-46.3); White Blood Count 9.45 K/ul (4.8-10.8)
[2024-10-04 07:44] LABS: Anion Gap 5 (3-11); BUN Creatinine Ratio 20.2 (10-20); Blood Urea Nitrogen 21 mg/dl (6-23); Calcium 8.7 mg/dl (8.6-10.3); Carbon Dioxide 31 mmol/L (21-32); Chloride 101 mmol/L (98-107); Creatinine Clr Calc Pharmacy 87.3 ml/min; Glucose 112 mg/dl (70-99(Fasting)); Sodium 137 mmol/L (136-145)
--- NOTE | 2024-10-04 09:50 | Cardiology Progress Note ---
Date of Service October 04, 2024 Assessment & Plan (1) Episode of syncope: (2) Symptomatic bradycardia: (3) Atrial fibrillation with slow ventricular response: (4) Diastolic CHF: (5) HTN (hypertension): (6) Hyperlipidemia: Plan Mr. Clemons is a 69 year old male with a history of Hypertension, Hyperlipidemia, Metabolic Syndrome, BRETT, Chronic RBBB, Gonsales's Esophagus, and Permanent Atrial Fibrillation who was admitted on 10/02/24 due to Symptomatic Bradycardia/A-Fib with slow ventricular response resulting in a Syncopal Episode. Patient was in his usual state of health when he woke up on Tuesday09/29/24, but he did not eat any breakfast and took all of his usual medications on an empty stomach (including Diltiazem CD 180 mg) and shortly after that he began to experience lightheadedness. Patient was then standing at a [employer] register to check out and he began to feel profoundly lightheaded. He started lowering himself to the ground, and then had a Syncopal Episode for several seconds. He subsequently was able to sit back up, and was evaluated by an EMT in the store. Ever since Tuesday, he has had ongoing and significant lightheadedness when ambulating, as well as new onset WEISS. No SOB at rest. He was then seen at [facility] and on cardiac monitoring he was in A-Fib with Slow Ventricular Response with heart rates ranging from 30 to 41 bpm. EKG showed A- Fib with slow ventricular response at 52 bpm, RBBB, and an age indeterminate septal infarct pattern. Corrected QT interval is 446 msec. Laboratories showed an elevated WBC count and a mild anemia. Electrolytes are within normal limits, normal BUN and serum creatinine. Lyme screen and Lyme IgG were positive, however his confirmatory Lyme IgM is negative. Patient was subsequently admitted and received a dose of IV Ceftriaxone 2000 mg last night around midnight. On ongoing cardiac monitoring, he remains bradycardic with heart rates ranging from the upper 20's to 40 bpm. Additionally he had a 3.6 second pause earlier today. He has not had any further syncopal episodes but he has been in bed for the most part. Patient appears to be compensated from a heart failure standpoint.. He had his last dose of Diltiazem CD 180 mg over 48 hours ago. His diagnosis is not Lyme Carditis, this is intrinsic conduction disease. At this point, he has had 2 doses of IV Ceftriaxone 2000 mg and his heart rate has not improved. Patient remains in A-Fib with a slow ventricular response rate. His V rates are in the mid to high 30's for the most part. He states his highest heart rate that he has seen was in the low 40's and he has had pauses of 3.2 to 3.6 seconds. He is still lightheaded at times but has not had any further syncope. He will need a single chamber pacemaker implanted. Recommend the followin. Remain off of any negative chronotropic medications. 2. Hold Eliquis. 3. Continue Losartan 100 mg daily. 4. Continue Hydrochlorothiazide 25 mg daily. 5. Continue Rosuvastatin 5 mg daily. 6. Monitor I&Os. 7. Monitor daily body weights. 8. Arrangements are being made to implant a permanent single chamber pacemaker using an LBB lead (single chamber because he is in permanent A-Fib). 9. He has been NPO overnight. We will continue to follow him along while hospitalized and following discharge. Admission and Anticipated Discharge Date Admission Date: October 03, 2024 Subjective Mr. Clemons remains in A-Fib with a slow ventricular response rate. His V rates are in the mid to high 30's for the most part. He states his highest heart rate that he has seen was in the low 40's and he has had pauses of 3.2 to 3.6 seconds. He is still lightheaded at times but has not had any further syncope. He will need a single chamber pacemaker implanted. Review of Systems Review of Systems: -- As per HPI. Physical Exam Physical Exam: Blood pressure 152/73, pulse 39 bpm and irregularly irregular. GENERAL: Patient in no acute distress. HEENT: Head is atraumatic, normocephalic. EOM's intact. Facies symmetric. No perioral cyanosis. NECK: No JVD. JVP is not elevated. Carotid upstrokes are + 2 bilaterally without bruits. CHEST/LUNGS: Clear to auscultation throughout all lung mcgarry. CVS: S1 and S2 are irregularly irregular and markedly bradycardic without murmurs, gallops, or rubs. PMI is nonpalpable. No lifts, heaves, or thrills. No abdominal aortic or renal bruits. ABDOMINAL EXAM: Bowel sounds are present. EXTREMITIES: No clubbing or cyanosis. Trace bipedal edema. Extremities are well perfused. NEUROLOGIC EXAM: Patient is awake, alert, and oriented. Pleasant and cooperative. Answers questions appropriately. Speech is clear. MANAGER UTILITIES: -- Atrial fibrillation with slow ventric ular response, V rates in mid to upper 3 0's and low 40's. -- One 3.2 second pause earlier today. Results & Data Vital Signs (Past 12 Hours) Vital Signs Temp Pulse Pulse Pulse Resp BP Pulse Ox 10/04/24 07:50 36.8 C 39 L 19 152/73 H 95 10/04/24 07:15 40 L 10/04/24 07:15 10/04/24 04:06 36.6 C 40 L 20 148/80 H 94 10/03/24 23:02 36.7 C 44 L 20 134/68 95 10/03/24 22:19 46 L O2 Del Method 10/04/24 07:50 Room Air 10/04/24 07:15 10/04/24 07:15 Room Air 10/04/24 04:06 Room Air 10/03/24 23:02 Room Air 10/03/24 22:19 Laboratory Results Laboratory Results - last 24 hr 10/04/24 10/04/24 07:05 08:13 WBC 9.45 RBC 4.20 L Hgb 12.2 L Hct 37.9 L MCV 90.2 MCH 29.0 MCHC 32.2 RDW Std Deviation 48.8 H RDW Coeff of Sean 14.9 H Plt Count 234 MPV 11.3 Sodium 137 Potassium TNP 4.1 Chloride 101 Carbon Dioxide 31 Anion Gap 5 BUN 21 Creatinine 1.04 Est Cr Clr Drug Dosing 87.3 eGFR 77.25 BUN/Creatinine Ratio 20.2 H Glucose 112 H Calcium 8.7 Medications Administered Medication List Apixaban (Apixaban 5 Mg Tablet) 5 mg PO BID JAY JAY Stop: 11/01/24 20:59 Last Admin: 10/04/24 09:25 Dose: Not Given Documented By: Admin: 10/03/24 20:51 Dose: 5 mg Documented By: Admin: 10/03/24 08:11 Dose: 5 mg Documented By: Admin: 10/02/24 20:44 Dose: 5 mg Documented By: ASM Hydrochlorothiazide (Hydrochlorothiazide 25 Mg Tab) 25 mg PO QAM JAY JAY Stop: 11/02/24 08:59 Last Admin: 10/04/24 09:25 Dose: 25 mg Documented By: Admin: 10/03/24 08:11 Dose: 25 mg Documented By: VICKI Ceftriaxone Sodium (Rocephin) 2,000 mg in 50 mls @ 100 mls/hr IV Q24H JAY JAY Stop: 10/13/24 20:59 Last Infusion: 10/03/24 21:21 Dose: Infused Documented By: Admin: 10/03/24 20:51 Dose: 100 mls/hr Documented By: RADHA Losartan Potassium (Losartan Potassium 50 Mg Tab) 100 mg PO QAM JAY JAY Stop: 11/02/24 08:59 Last Admin: 10/04/24 09:25 Dose: 100 mg Documented By: Admin: 10/03/24 08:11 Dose: 100 mg Documented By: VICKI Pantoprazole Sodium (Pantoprazole 40 Mg Tab) 40 mg PO BID JAY JAY Stop: 11/01/24 20:59 Last Admin: 10/04/24 09:25 Dose: 40 mg Documented By: Admin: 10/03/24 20:51 Dose: 40 mg Documented By: Admin: 10/03/24 08:11 Dose: 40 mg Documented By: Admin: 10/02/24 20:44 Dose: 40 mg Documented By: ARSENIO Rosuvastatin Calcium (Rosuvastatin Calcium 5 Mg Tab) 5 mg PO DAILY JAY JAY Stop: 11/02/24 08:59 Last Admin: 10/04/24 09:25 Dose: 5 mg Documented By: Admin: 10/03/24 08:11 Dose: 5 mg Documented By: VICKI Discontinued Medications Furosemide (Furosemide 40 Mg/4 Ml Vial) 60 mg IV ONE ONE Stop: 10/03/24 09:51 Last Admin: 10/03/24 11:12 Dose: 60 mg Documented By: VICKI Ceftriaxone Sodium (Rocephin) 2,000 mg in 50 mls @ 100 mls/hr IV Q24H [facility] Stop: 10/12/24 21:59 Last Infusion: 10/03/24 00:15 Dose: Infused Documented By: Admin: 10/03/24 00:07 Dose: 100 mls/hr Documented By: ARSENIO Ioversol (Optiray 320 125ml) 119 ml IV ONCE ONE Stop: 10/02/24 10:56 Last Admin: 10/02/24 10:55 Dose: 119 ml Documented By: ASA PG Care Time/CCT Total # of Minutes Spent Total Time Spent with Patient: Total time spent is greater than 50% in coordination of care (as documented) at patient's floor/unit and/or counseling patient:35 [place] [address] SUB INP/OBS CARE 3/50MIN Patient Type Established History Detailed Exam Detailed Medical Decision Making High Complexity Diagnoses Syncope, unspecified syncope type R55 Syncope type: unspecified Symptomatic bradycardia R00.1 Atrial fibrillation with slow ventricular response I48.91 Acute diastolic congestive heart failure I50.31 Heart failure chronicity: acute Primary hypertension I10 Hypertension type: primary hypertension Mixed hyperlipidemia E78.2 Hyperlipidemia type: mixed hyperlipidemia Time Spent (min) 58 (1) Episode of syncope Syncope type: unspecified Qualified Code(s): R55 - Syncope and collapse (4) Diastolic CHF Heart failure chronicity: acute Qualified Code(s): I50.31 - Acute diastolic (congestive) heart failure (5) HTN (hypertension) Hypertension type: primary hypertension Qualified Code(s): I10 - Essential (primary) hypertension (6) Hyperlipidemia Hyperlipidemia type: mixed hyperlipidemia Qualified Code(s): E78.2 - Mixed hyperlipidemia
--- NOTE | 2024-10-04 12:20 | Billing Data ---
Date of Service October 04, 2024 Coding Level of Care Code 14016 SUB INP/OBS CARE
--- NOTE | 2024-10-04 14:20 | Pre Anesthesia Assessment ---
Date of Service October 04, 2024 Pre Sedation Assessment Vital Signs Temp Pulse Pulse Pulse Resp BP Pulse Ox 10/04/24 14:11 37 L 16 174/79 H 16 L 10/04/24 10:49 36.7 C 36 L 19 135/73 95 10/04/24 07:50 36.8 C 39 L 19 152/73 H 95 10/04/24 07:15 40 L 10/04/24 07:15 10/04/24 04:06 36.6 C 40 L 20 148/80 H 94 10/03/24 23:02 36.7 C 44 L 20 134/68 95 10/03/24 22:19 46 L 10/03/24 20:36 36.6 C 39 L 20 130/75 96 10/03/24 19:45 10/03/24 14:48 36.7 C 39 L 18 149/79 H 97 O2 Del Method 10/04/24 14:11 Room Air 10/04/24 10:49 Room Air 10/04/24 07:50 Room Air 10/04/24 07:15 10/04/24 07:15 Room Air 10/04/24 04:06 Room Air 10/03/24 23:02 Room Air 10/03/24 22:19 10/03/24 20:36 Room Air 10/03/24 19:45 Room Air 10/03/24 14:48 Room Air Cardiovascular + bradycardic and + irregularly irregular Respiratory + respiratory effort normal Pre-Sedation Airway Assessment Smoking Status: Current every day smoker Hx Sleep Apnea: No Hx Difficult Intubation: No Short, Thick Neck: No Thyromental Distance: > or= 3.5 Finger Breadths Oral Cavity: + WNL Mallampati Class: IV ASA: ASA4 NPO Status Date of Last Intake of Fluids: 10/04/24 Time of Last Intake of Fluids: 08:00 Last Oral Intake of Fluids Comment: sip with meds Date of Last Intake of Solid Food: 10/03/24 Procedure Planning Contraindications for Sedation: none Current Medications Reviewed: Yes Notes The planned sedation has been discussed with the patient. Informed Consent was obtained. I have identified the patient, determined the appropriateness of sedation and have assessed the patient immediately prior to the procedure. All medicine(s) and interventions are by my order.
[2024-10-04] MEDS: LIDOCAINE 1% LOCAL 20 ML VIAL ONE (14:53)
[2024-10-04] MEDS: VANCOMYCIN HCL 1000MG/20ML VIAL ONE (14:55)
[2024-10-04] MEDS: WATER, STERILE FOR INJ 10 ML VIAL ONE (14:55)
[2024-10-04] MEDS: BUPIVACAINE 0.25% PF 30 ML VIAL ONE (14:55)
[2024-10-04] MEDS: ceFAZolin 330 MG/ML 1 GM VIAL ONE (14:56)
[2024-10-04] MEDS: fentaNYL citrate PF 100 MCG/2 ML VIAL ONE ×2 (16:07→16:11)
[2024-10-04] MEDS: MIDAZOLAM HCL 5 MG/ML 1 ML VIAL ONE (16:08)
[2024-10-04] MEDS: MIDAZOLAM HCL 1 MG/ML 2ML VIAL ONE (16:12)
--- NOTE | 2024-10-04 16:16 | Post Anesthesia Assessment ---
Date of Service October 04, 2024 Post Sedation Assessment Vital Signs Temp Pulse Pulse Pulse Resp BP Pulse Ox 10/04/24 15:38 38 L 10/04/24 14:11 37 L 16 174/79 H 16 L 10/04/24 10:49 36.7 C 36 L 19 135/73 95 10/04/24 07:50 36.8 C 39 L 19 152/73 H 95 10/04/24 07:15 40 L 10/04/24 07:15 10/04/24 04:06 36.6 C 40 L 20 148/80 H 94 10/03/24 23:02 36.7 C 44 L 20 134/68 95 10/03/24 22:19 46 L 10/03/24 20:36 36.6 C 39 L 20 130/75 96 10/03/24 19:45 O2 Del Method 10/04/24 15:38 10/04/24 14:11 Room Air 10/04/24 10:49 Room Air 10/04/24 07:50 Room Air 10/04/24 07:15 10/04/24 07:15 Room Air 10/04/24 04:06 Room Air 10/03/24 23:02 Room Air 10/03/24 22:19 10/03/24 20:36 Room Air 10/03/24 19:45 Room Air Recovery Score Activity: Moves 4 extremities Respiration: Deep Breath/Cough Circulation: +/-20% PreAnes Value Consciousness: Arouseable (by name) Oxygen Saturation: O2 needed for >90% Discharge Sedation Level of Care: Fast Track Phase II Post Sedation Plan On clinical assessment, the patient appears to have tolerated the sedation without complications. Patient is recovering as anticipated. Patient will continue to be monitored by nursing and may be discharged when sedation discharge criteria are met per below protocol. Upon Completions of procedure up to 15 minutes continue every 5 minute vital signs and the P.A.R. score; then discharge to a Phase I or Fast Track to Phase II per the following guidelines: * Discharge Patient to appropriate Phase II area if PAR is 8 or greater or return to pre- procedure baseline. The post - procedure orders will be as directed. * If PAR score is less than 8 or not return to pre-procedure baseline then patient will follow Phase I monitoring till PAR is reached for Phase II. The Phase I may be done in procedure room or may call to secure a Phase I area. * If naloxone or flumazenil are used for reversal, hold in Phase I for continued monitoring from when last reversal dose was given for a minimum of 60 minutes or longer pending the nurse and/or physician discretion of patient condition before discharge to Phase II. Please call the Sedation Physician to re-evaluate and complete post-note for discharge to Phase II area. Do NOT discharge from procedure sedation or Phase 1 until post- sedation evaluation note is complete by procedure /sedation MD Sedation Discharge Instructions to be given to the patient at discharge to home.
--- NOTE | 2024-10-04 16:16 | Electrophysiology Report ---
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 He presented with symptoms of dizziness and syncope. He was noted to have significant bradycardia and felt to be a good candidate for permanent pacemaker due to symptomatic nonreversible AV node dysfunction. Procedure in detail: The patient was informed of the risks benefits and alternatives to the intended procedure and she wished to proceed. He was taken to the electrophysiology suite in a fasting state. A preoperative antibiotic had been administered. The patient was monitored electrocardiographically throughout today's procedure and conscious sedation was administered per protocol. The left upper pectoral area was prepped and draped in usual sterile fashion. This area was anesthetized using subcutaneous administration of a xylocaine solution. An incision was made at this site and carried down to the prepectoralis fascia using sharp dissection. Electrocautery was also employed for dissection as well as for hemostasis. A device pocket was fashioned tissues above the pectoralis muscle. Subsequent to this maneuver the left axillary vein was accessed using modified Seldinger technique. A sheath was placed over guidewire and used to facilitate passage of a guiding catheter for mapping of the interventricular septum. Once an appropriate location was identified a pacing lead was advanced into the interventricular septum until the appropriate electrophysiologic characteristics were obtained. At this point the guiding catheter was removed. The proximal portion of the lead was then sutured the prepectoralis fascia using nonabs orbable suture. Adequate sensing and threshold parameters were obtained prior to active fixation of this lead to the endocardial surface. The proximal portion of the lead was then sutured the prepectoral fascia using nonabsorbable suture. The device pocket was irrigated with antibiotic solution. The lead was then attached to the device. The device and lead were then placed in the pocket and pocket was closed in 3 layers of absorbable suture. Steri-Strips and sterile dressing were applied. The device was tested noninvasively prior to conclusion the procedure. The patient tolerated procedure well there no immediate complications. Equipment used: New pulse generator: Dat[employer]age [employer] ([employer]). Model number: [id number] serial number [id number] Right ventricular lead: Datastage Developer [employer]. Model number: [id number] serial number [id number] Measured data: Right ventricular lead: R waves measured 7.6 mV. Pacing threshold was 0.5 V at 0.4 ms with a pacing PINS of 817 ohms Impression: Successful implantation of single-chamber pacemaker with left bundle pacing lead [facility] Electrophysiology codes Pacing Procedure 1: Pacin Insert/Replace Pacer V PG Moderate Sedation Codes Moderate Sedation Codes Procedure 1: Sedation/Anesthesia: 89696 Mod Sedation by the same physician;Init15 Min Child Age 5 & Up Procedure 2: Sedation/Anesthesia: 43918 Mod Sedation by the same physician; Ea [id number] Minutes
[2024-10-04] MEDS ORDERED: oxyCODONE HCL IR 5 MG TAB (IMMEDIATE RELEASE) PO PRN (16:17)
[2024-10-04] MEDS: ACETAMINOPHEN 325 MG TAB PO PRN (22:21)
[2024-10-04] MEDS: ceFAZolin 1000MG 1,000 MG/7.5 ML SYR IV ONE (23:36)
[2024-10-05 07:12] LABS: Hematocrit (blood only) 37.5 % (42.0-52.0); Hemoglobin 12.3 g/dl (14.0-18.0); Mean Corpuscular Hemoglobin 29.4 pg (25.0-34.0); Mean Corpuscular Hgb Conc 32.8 g/dL (32.0-36.0); Mean Corpuscular Volume 89.7 fL (80.0-100.0); Mean Platelet Volume 10.9 fL (9.4-12.4); Platelet Count 230 K/uL (130-400); RDW Coefficient of Variation 14.5 % (11.5-14.5); RDW Standard Deviation 47.4 fL (36.4-46.3); Red Blood Count 4.18 M/uL (4.70-6.10); White Blood Count 7.84 K/ul (4.8-10.8)
--- NOTE | 2024-10-05 07:14 | Discharge Summary ---
"Date of Service October 05, 2024 Admission HPI Per Admitting Provider Mr. Clemons is a 69-year-old male with PMH of BPH, Gonsales's esophagus, BRETT, RBBB, metabolic syndrome, HLD, HTN, and A-fib (on Eliquis). He presented on 10/02 for ongoing dizziness/lightheadedness, and a syncopal episode. Patient reports he was standing at a [employer] register to check out on Friday 09/29 when he began to feel lightheaded. He started lowering himself to the ground, and passed out for several seconds. He denies head strike. He sat back up, and was evaluated by an EMT in the store. Patient believes he passed out because he took his morning medication without eating. Ever since Tuesday, he has had ongoing lightheadedness when ambulating, as well as new onset WEISS. No SOB at rest. Patient has a history of atrial fibrillation, but reports he has never been able to feel chest palpitations in the past. He also has a history of iron deficiency anemia, and has required iron infusions in the past. Patient reports he is normally active outdoors (chopping wood, mowing grass, using his tractor, etc.). He denies any rashes or tick bites. No prior history of Lyme disease. No recent change in diet, but reports he does not eat much (only breakfast and dinner). No recent weight changes. He watches his salt intake. Patient denies smoking, tobacco use, or recent alcohol use. Patient is bradycardic at 37 bpm at time of admission. ED course: ROS: Patient endorses syncopal episode, lightheadedness/dizziness, neck stiffness (ongoing), and new onset WEISS (started on Tuesday). Patient denies fever, chills, night sweats, changes in vision (blurry vision, double vision, photophobia), chest pain, chest palpitations, SOB at rest, cough, abdominal pain, N/V/D, burning with urination, blood in the urine/stool, melena, or numbness/tingling in the arms or legs. Principal Diagnosis Bradycardia Discharge Exam General: no acute distress; pleasant affect; HEENT: normocephalic, atraumatic; no scleral icterus; PERRLA w/ EOMs intact; vision and hearing grossly intact Neck: supple; no lymphadenopathy; trachea midline Skin: warm, dry without signs of tenting; no cyanosis; no rashes, bruising, lesions, or erythema noted. Incision at anterior left chest is clean dry. CV: Bradycardic in high 30's, irregular; S1/S2 normal; no murmurs/rubs/gallops; pulses intact and symmetric at radial and DP Lungs: no acute respiratory distress; symmetrical chest wall expansion; clear breath sounds across all lung mcgarry w/o adventitious sounds; no wheezing ABD: Soft, NTP; BS present; no rebound/guarding; no distention MSK:Strength is grossly 5/5, 1+ pitting edema noted around the ankles L>R, nonerythematous Neuro: A&Ox3; normal mood and affect; fluent speech; no focal deficits; sensation intact and symmetric in lower extremes bilaterally Discharge Data Allergies Allergy/AdvReac Type Severity Reaction Status Date / Time No Known Allergies Allergy Verified 03/29/24 08:20 Consultations 10/02/24 12:58 ED Decision to Admit Stat 10/02/24 13:14 Consult Cardiology Routine Procedures Performed Operation Date: 10/04/24 15:00 Actual Procedures p Pacer with Ventricular Lead - Javi Hoang MD Ordered Studies 10/02/24 09:32 CT cervical spine wo con Stat CT for pulmonary embolism PE [CT angio chest PE protocol] Stat 10/04/24 13:00 EP Lab Images for PACS ONCE 10/04/24 14:00 EP Lab Images for PACS ONCE Hospital Course (1) Symptomatic bradycardia: (2) Episode of syncope: Plan This is a 69-year-old male who presented on 10/02 following a syncopal episode. Admitted for cardiac assessment in the setting of symptomatic bradycardia. #Syncopal episode | Symptomatic bradycardia Lightheaded on Friday 09/29; patient sat down and briefly passed out; no head strike or trauma. Heart rate down to 35 bpm the emergency department. Echocardiogram shows EF 60-65%, Tricuspid regurgitation, no wall acute wall abnormalities. Fluctuating between 35-46 bmp in the last 24 hours. Lyme screen IgG pos, IgM negative- no active infection indicated. IV CTX was continued yesterday and diltiazem held without improvement in HR. - External pacer was at bedside - Atropine 0.5 mg IV q5m PRN x 3 max doses for symptomatic bradycardia - Holding diltiazem (avoid all AV mason blockers) - Cardiology following- appreciated for potential pacemaker placement S/p cardiac pacemaker on 10/04 - Stopped IV CTX #B/L LE edema Patient does have +1 pitting edema in the lower extremity bilaterally, as well as new onset WEISS. BNP mildly elevated at 261. Echo completed showing good EF. - Strict I&O monitoring - Daily weights #Leukocytosis-Resolved Mild; leukocytosis at 12.45 with a neutrophilic predominance in ED . Pt continue to deny infectious symptoms such as fever, cough, or urinary symptoms. Chest CTA without pulmonary embolism or pneumonia. UA negative for infection. BioFire negative for infection. WBC this morning in normal range - Unclear etiology - Trend CBC #Paroxysmal atrial fibrillation - Resume Eliquis on 09/06 #HTN Continue losartan, HCTZ #HLD Continue rosuvastatin #GERD Continue PPI Disposition: PCU telemetry VTE PPx: Eliquis Diet: NPO in preparation for possible procedure Total Time Total Time Spent Total Time Spent (In Minutes): <30 Discharge Plan Discharge Items Patient Disposition: Home - Self-Care Reason For Visit: SYMPTOMATIC BRADYCARDIA Discharge Diagnosis: S/p pacemaker due to bradycardia Condition on Discharge: Fair Activity: Per Instructions section Lifting: No more than 10 pounds Lifting Comment: No lifting left arm above shoulder or behind neck for 6 weeks Bathing: Keep incision dry Bathing Comment: Keep wound dry and steri-strip intact until f/u Non-emergency contact: Primary Care Provider Call non-emergency contact if: your symptoms worsen Follow-up/Referrals: Masood Zapien MD [Primary Care Provider] - Diet: Heart Healthy Addtl Attending Provider Instructions: You were admitted for slow heart rate. It did not improve after stopping diltiazem or giving IV antibiotics to treat for possible Lyme disease induce myocarditis. At that time, it was decided that it was best to undergo a cardiac pacemaker placement. Precautions following cardiac pacemaker placement include: Maintain left arm below shoulder level and limit use of left arm for the next 3 weeks. Avoid strenuous activity, lifting more than 10=15 lbs Keep incision site clean and dry, no creams, lotions or ointments over the area Watch for signs of infection: fever, skin swelling/redness/drainage from incision Hold home dose of Eliquis today, may resume tomorrow morning (10/06/24) Follow up with your drapery cutter as scheduled on 10/11/24. Follow up with your primary care physician in 7-10 days. Pending Studies at Discharge: No Stand-Alone Forms: My [facility], Smoking Cessation Medications and DC Order Prescriptions: Continued sildenafil [Viagra] 50 mg tablet 50 mg PO DAILY PRN (Reason: sexual activity) Qty: 20 1RF Rx Instructions: administer 30 minutes to 4 hours before activity pantoprazole 40 mg tablet,delayed release (DR/EC) 40 mg PO BID Qty: 180 3RF losartan 100 mg tablet 100 mg PO QAM Qty: 90 3RF hydrochlorothiazide 25 mg tablet 25 mg PO QAM Qty: 90 1RF diltiazem HCl 180 mg capsule,extended release 24hr 180 mg PO QAM Qty: 100 3RF rosuvastatin 5 mg tablet 5 mg PO DAILY Qty: 30 5RF Curcumin 95 % powder 1 % MS QAM acetaminophen 650 mg tablet extended release 650 mg PO QAM ferrous sulfate 325 mg (65 mg iron) tablet 325 mg PO WK Rx Instructions: MONDAYS ascorbate calcium (vitamin C) 500 mg tablet 1 g PO QAM cholecalciferol (vitamin D3) 50 mcg (2,000 unit) capsule 50 mcg PO QAM multivitamin Tablet 1 tab PO DAILY Held Eliquis 5 mg tablet 5 mg PO BID Qty: 60 5RF Hold Instructions: Resume on 10/06/24. Discharge Orders: Discharge Order (Routine); Ordered 10/05/24 Ordered By: Jahaira Dumont Admission Data Admit Date/Time: 10/03/24 12:51 Attending Provider: Parrish Jang Admit Provider: Lianet Ponce Primary Care Provider: Masood Zapien V. Other Providers: Nile Perez Jr; Lianet Ponce; Yohan Gatica Supervising Physician Co-Signing Physician Notes I personally examined the patient and verified all leahy points of history and exam, discussed case, and agree with decision making with Dr Dumont Other than sore around his left shoulder, he feels good. Would like to go home. No feelings of lightheadedness or dizziness. vitals noted nad heent nc at mmm breathing unlabored no accessory muscles good effort skin no rashes no pallor or icterus Heart rate now 60. Chest x-ray noted. No pneumothorax. symptomatic bradycardia - Now status post pacemaker. Rates have improved to 60. Symptoms improved. Safe/stable for home. Has cardiology follow-up for next week. Discussed left arm restrictions for likely about 2 weeks. otherwise as above Resident Activity Tracking Resident Involvement: Resident Care Provided Care Provided: Adult Hospital Medicine"
--- NOTE | 2024-10-05 07:23 | XRay Report ---
EXAM: XR chest 2V PA/lateral CLINICAL HISTORY: EXACT TIME ORDERED Evaluate for pneumothorax and l TECHNIQUE: Radiograph of chest was acquired. COMPARISON: 10/02/2024 09:17:16 SKIP LOCATOR FINDINGS: cardiac pacemaker insitu Cardiomegaly- unchanged The lungs are clear and well-expanded with no pulmonary infiltrate or pleural effusion. Rest of the cardiomediastinal silhouette is within normal limits. No acute osseous abnormality. IMPRESSION: Cardiomegaly- unchanged Cardiac pacemaker insitu No pneumothorax Electronically signed by Dhiraj Castañeda 10-05-2024 07:22 AM
[2024-10-05 07:26] VITALS: RESP 20; TEMP 97.9
[2024-10-05 07:34] LABS: BUN Creatinine Ratio 21.9 (10-20); Calcium 8.7 mg/dl (8.6-10.3); Creatinine Clr Calc Pharmacy 94.3 ml/min
[2024-10-05 09:29] VITALS: PULSE 60
[2024-10-05 10:58] VITALS: BP 149/85; O2SAT 94
--- NOTE | 2024-10-05 13:14 | Billing Data ---
Date of Service October 05, 2024 Coding Level of Care Code 93601 IN/OBS DISCH 30 MIN/LESS
[2024-10-08] MEDS ORDERED: FERROUS SULFATE 325 MG TAB PO SCH (09:00)
--- NOTE | 2024-10-08 10:58 | Coding Query ---
CONGESTIVE HEART FAILURE To Promote full compliance with coding requirements relating to patient care, physician participation is requested in all cases of e tailer uncertainty. Please assist us with the following questions. A diagnosis of Congestive Heart Failure is documented in the patient's medical record. To accurately code this diagnosis and to compare patient severity, we ask that you specify the type of heart failure by placing an X within the parenthesis (x). SYSTOLIC HEART FAILURE ( ) Acute ( ) Chronic ( ) Acute on Chronic ( ) Rheumatic ( ) Unknown DIASTOLIC HEART FAILURE ( ) Acute ( ) Chronic ( x) Acute on Chronic ( ) Rheumatic ( ) Unknown COMBINED SYSTOLIC AND DIASTOLIC HEART FAILURE ( ) Acute ( ) Chronic ( ) Acute on Chronic ( ) Rheumatic ( ) Unknown Was the CHF Present On Admission? Please check the appropriate box: ( x) Present on Admission ( ) Not Present On Admission ( ) Clinically undetermined Thank you Mer MCLEOD
--- NOTE | 2024-10-09 14:24 | Electrocardiogram Report ---
Test Reason : Blood Pressure : */* mmHG Vent. Rate : 50 BPM Atrial Rate : * BPM P-R Int : * ms QRS Dur : 134 ms QT Int : 492 ms P-R-T Axes : * -12 1 degrees QTcB Int : 448 ms Atrial fibrillation with slow ventricular response Right bundle branch block Abnormal ECG When compared with ECG of 02-Oct-2024 08:55, No significant change Confirmed by Adriano Hernandez ([id number]) on 10/09/2024 2:24:18 PM Referred By: REFERRED SELF Confirmed By: Adriano Hernandez
== END 2024-10-05 15:58 | disposition home or self-care (01) | DRG 242 ==
LOC: 2S 08:37 → ED 08:37 → SUATTDRO 13:19 → 2S 14:20